=== PATIENT | male | born 1965 | race Caucasian/White ===

== ENCOUNTER 2017-12-27 18:58 | Observation (INO) ==
[2017-12-27] MEDS ORDERED: Naloxone Inj 0.4 MG/ML Vial IV.PUSH ONE (19:22)
--- NOTE | 2017-12-27 19:33 | ED ---
HPI General Chief Complaint: Altered Mental Status Stated Complaint: AMS Time Seen by Provider: 12/27/17 19:10 Source: patient and EMS Mode of arrival: EMS Limitations: altered mental status History of Present Illness HPI narrative: pt is living in a sober house and very altered slurring words and very sleepy , falls asleep mid sentence and severe slur. denies etoh , no opioids no ambien, other. However the patient does have a bottle of Rozerem it is a melatonin receptor agonist apparently was filled 30 days ago with 90 pills it is empty and it was q. at bedtime so he possibly is taking much too much of this melatonin receptor agonist which theoretically could cause severe somnolence. ROS and HPI is limited to the fact that he is very sleepy lethargic falling asleep mid sentence Related Data Home Medications Medication Instructions Recorded Confirmed escitalopram oxalate 20 mg PO DAILY 12/27/17 12/29/17 famotidine 20 mg PO DAILY 12/27/17 12/29/17 finasteride 5 mg PO DAILY 12/27/17 12/29/17 quetiapine 400 mg PO BID 12/27/17 12/29/17 sitagliptin [Januvia] 50 mg PO DAILY 12/27/17 12/29/17 tamsulosin 0.4 mg PO DAILY 12/27/17 12/29/17 lithium carbonate 600 mg PO BID 12/29/17 12/29/17 Previous Rx's Medication Instructions Recorded cephalexin 500 mg PO Q12H #14 cap 12/28/17 Allergies Allergy/AdvReac Type Severity Reaction Status Date / Time No Known Allergies Allergy Verified 12/29/17 18:29 Review of Systems ROS Unobtainable ROS Unobtainable: unobtainable due to mental status (lethergic sleepy slurring appears intoxicated ) [facility] Social History Social History Substance History: No History of Abuse Second Hand Smoke Exposure: No Smoking Status: Never smoker How Often Do You Have a Drink Containing Alcohol: Never Immunization History Tetanus Immunization: Unable to Assess Exam Narrative Exam Narrative: GENERAL: Lethargic sleepy somnolent trials off midsentence slurring his words SKIN: Warm and dry. HEAD: Atraumatic. Normocephalic. EYES: Pupils equal and round. No scleral icterus. No injection or drainage. ENT: No nasal bleeding or discharge. Mucous membranes pink and moist. NECK: Trachea midline. No JVD. CARDIOVASCULAR: Regular rate and rhythm. RESPIRATORY: No accessory muscle use. Clear to auscultation. Breath sounds equal bilaterally. GASTROINTESTINAL: Abdomen soft, non-tender, nondistended. Hepatic and splenic margins not palpable. MUSCULOSKELETAL: Extremities without clubbing, cyanosis, or edema. No obvious deformities. PSYCHIATRIC: No delusional thought processes. No hallucinations. Patient seems to be falling asleep mid sentence very somnolent possible and talks overdose Course Initial Documented Vital Signs Pulse Rate 79 12/27/17 19:12 Respiratory Rate 18 12/27/17 19:12 Blood Pressure 111/68 12/27/17 19:12 Pulse Oximetry 95 12/27/17 19:12 Last Documented Vital Signs Temperature 98.0 F 12/28/17 07:28 Pulse Rate 68 12/28/17 07:28 Respiratory Rate 16 12/28/17 07:28 Blood Pressure 130/80 12/28/17 07:28 Pulse Oximetry 97 12/28/17 07:28 Medical Decision Making [facility] Narrative Medical decision making narrative: Patient has a bottle of roast serum which is a melatonin agonist possibly he is taking much too much of this because the bottle is empty it should have at least 60 pills left 90 pills were filled on November 24 and they are empty bottle CT of head is done bedside glucose is 137 there is no sign of drug screen and Narcan is given, pt has a significant UTI and the combination of meds and urosepsis is possibly the reason for lethargy . admitted for further treatment and IV antibiotics Medical Screen Exam Complete: Yes Emergency Medical Condition: Yes Differential Diagnosis Differential Diagnosis: Differential diagnosis includes alcohol intoxication opioid overdose this Seroquel overdose benzo overdose Benadryl overdose intracranial head bleed hypoglycemia insulin overdose Lab Data Result diagrams: 12/28/17 05:30 12/28/17 05:30 Lab Results 12/27/17 12/27/17 12/27/17 Range/Units 19:17 19:23 19:23 WBC 6.4 (4.0-11.0) th/mm3 RBC 4.53 (4.50-5.90) mil/mm3 Hgb 14.0 (13.0-17.0) gm/dL Hct 39.1 (39.0-51.0) % MCV 86.2 (80.0-100.0) fL MCH 30.8 (27.0-34.0) pg MCHC 35.7 (32.0-36.0) % RDW 13.5 (11.6-17.2) % Plt Count 158 (150-450) th/mm3 MPV 7.1 (7.0-11.0) fL Neut % (Auto) 53.3 (16.0-70.0) % Lymph % (Auto) 31.4 (9.0-44.0) % [place] % (Auto) 11.7 H (0.0-8.0) % Eos % (Auto) 2.5 (0.0-4.0) % Baso % (Auto) 1.1 (0.0-2.0) % Neut # (Auto) 3.4 (1.8-7.7) th/mm3 Lymph # (Auto) 2.0 (1.0-4.8) th/mm3 [place] # (Auto) 0.8 (0.0-0.9) th/mm3 Eos # (Auto) 0.2 (0.0-0.4) th/mm3 Baso # (Auto) 0.1 (0.0-0.2) th/mm3 WBC Differential . Differential Comment Auto diff final Sodium 141 (136-145) meq/L Potassium 3.9 (3.5-5.1) meq/L Chloride 106 (98-107) meq/L Carbon Dioxide 29.9 (21.0-32.0) meq/L Anion Gap 5 (5-15) meq/L BUN 11 (7-18) mg/dL Creatinine 1.07 (0.60-1.30) mg/dL Estimated GFR 73 L (>89) mL/min POC Glucose 136 H (68-110) mg/dl Random Glucose 117 H (74-106) mg/dL Calcium 9.2 (8.5-10.1) mg/dL Total Bilirubin 0.6 (0.2-1.0) mg/dL AST 13 L (15-37) U/L ALT 28 (12-78) U/L Alkaline Phosphatase 88 (45-117) U/L Total Protein 7.6 (6.4-8.2) g/dL Albumin 3.6 (3.4-5.0) g/dL Lipase 18 L (73-393) U/L Urine Color (Yellw/Straw) Urine Clarity (Clear) Urine pH (5.0-8.5) Ur Specific [place] (1.002-1.035) Urine Protein (Neg-Trace) mg/dL Urine Glucose (UA) (Negative) mg/dL Urine Ketones (Negative) mg/dL Urine Occult Blood (Negative) Urine Nitrate (Negative) Urine Bilirubin (Negative) Urine Urobilinogen (Less than 2) mg/dL Ur Leukocyte Esterase (Negative) Urine RBC (0-3) /hpf Urine WBC (0-5) /hpf Urine WBC Clumps (None) Ur Squamous Epith Cells (0-5) /hpf Urine Bacteria (None) /hpf Urine Mucus (Occasional) /lpf Ur Microscopic Review Salicylates (2.8-20.0) mg/dL Urine Opiates Screen (Neg) Acetaminophen Less than 2.0 L (10.0-30.0) mcg/mL Ur Barbiturates Screen (Neg) Ur Amphetamines Screen (Neg) U Benzodiazepines Scrn (Neg) [place] (0.5-1.5) meq/L Urine Cocaine Screen (Neg) U Cannabinoids Screen (Neg) Serum Alcohol Less than 3 (0-5) mg/dL 12/27/17 12/27/17 12/27/17 Range/Units 19:23 19:23 19:23 WBC (4.0-11.0) th/mm3 RBC (4.50-5.90) mil/mm3 Hgb (13.0-17.0) gm/dL Hct (39.0-51.0) % MCV (80.0-100.0) fL MCH (27.0-34.0) pg MCHC (32.0-36.0) % RDW (11.6-17.2) % Plt Count (150-450) th/mm3 MPV (7.0-11.0) fL Neut % (Auto) (16.0-70.0) % Lymph % (Auto) (9.0-44.0) % [place] % (Auto) (0.0-8.0) % Eos % (Auto) (0.0-4.0) % Baso % (Auto) (0.0-2.0) % Neut # (Auto) (1.8-7.7) th/mm3 Lymph # (Auto) (1.0-4.8) th/mm3 [place] # (Auto) (0.0-0.9) th/mm3 Eos # (Auto) (0.0-0.4) th/mm3 Baso # (Auto) (0.0-0.2) th/mm3 WBC Differential Differential Comment Sodium (136-145) meq/L Potassium (3.5-5.1) meq/L Chloride (98-107) meq/L Carbon Dioxide (21.0-32.0) meq/L Anion Gap (5-15) meq/L BUN (7-18) mg/dL Creatinine (0.60-1.30) mg/dL Estimated GFR (>89) mL/min POC Glucose (68-110) mg/dl Random Glucose (74-106) mg/dL Calcium (8.5-10.1) mg/dL Total Bilirubin (0.2-1.0) mg/dL AST (15-37) U/L ALT (12-78) U/L Alkaline Phosphatase (45-117) U/L Total Protein (6.4-8.2) g/dL Albumin (3.4-5.0) g/dL Lipase (73-393) U/L Urine Color (Yellw/Straw) Urine Clarity (Clear) Urine pH (5.0-8.5) Ur Specific [place] (1.002-1.035) Urine Protein (Neg-Trace) mg/dL Urine Glucose (UA) (Negative) mg/dL Urine Ketones (Negative) mg/dL Urine Occult Blood (Negative) Urine Nitrate (Negative) Urine Bilirubin (Negative) Urine Urobilinogen (Less than 2) mg/dL Ur Leukocyte Esterase (Negative) Urine RBC (0-3) /hpf Urine WBC (0-5) /hpf Urine WBC Clumps (None) Ur Squamous Epith Cells (0-5) /hpf Urine Bacteria (None) /hpf Urine Mucus (Occasional) /lpf Ur Microscopic Review Salicylates Less than 1.7 L (2.8-20.0) mg/dL Urine Opiates Screen (Neg) Acetaminophen Cancelled (10.0-30.0) mcg/mL Ur Barbiturates Screen (Neg) Ur Amphetamines Screen (Neg) U Benzodiazepines Scrn (Neg) [place] (0.5-1.5) meq/L Urine Cocaine Screen (Neg) U Cannabinoids Screen (Neg) Serum Alcohol Cancelled (0-5) mg/dL 12/27/17 12/27/17 12/27/17 Range/Units 20:16 20:16 21:02 WBC (4.0-11.0) th/mm3 RBC (4.50-5.90) mil/mm3 Hgb (13.0-17.0) gm/dL Hct (39.0-51.0) % MCV (80.0-100.0) fL MCH (27.0-34.0) pg MCHC (32.0-36.0) % RDW (11.6-17.2) % Plt Count (150-450) th/mm3 MPV (7.0-11.0) fL Neut % (Auto) (16.0-70.0) % Lymph % (Auto) (9.0-44.0) % [place] % (Auto) (0.0-8.0) % Eos % (Auto) (0.0-4.0) % Baso % (Auto) (0.0-2.0) % Neut # (Auto) (1.8-7.7) th/mm3 Lymph # (Auto) (1.0-4.8) th/mm3 [place] # (Auto) (0.0-0.9) th/mm3 Eos # (Auto) (0.0-0.4) th/mm3 Baso # (Auto) (0.0-0.2) th/mm3 WBC Differential Differential Comment Sodium (136-145) meq/L Potassium (3.5-5.1) meq/L Chloride (98-107) meq/L Carbon Dioxide (21.0-32.0) meq/L Anion Gap (5-15) meq/L BUN (7-18) mg/dL Creatinine (0.60-1.30) mg/dL Estimated GFR (>89) mL/min POC Glucose 139 H (68-110) mg/dl Random Glucose (74-106) mg/dL Calcium (8.5-10.1) mg/dL Total Bilirubin (0.2-1.0) mg/dL AST (15-37) U/L ALT (12-78) U/L Alkaline Phosphatase (45-117) U/L Total Protein (6.4-8.2) g/dL Albumin (3.4-5.0) g/dL Lipase (73-393) U/L Urine Color Yellow (Yellw/Straw) Urine Clarity Cloudy H (Clear) Urine pH 7.0 (5.0-8.5) Ur Specific [place] 1.009 (1.002-1.035) Urine Protein Negative (Neg-Trace) mg/dL Urine Glucose (UA) Negative (Negative) mg/dL Urine Ketones Negative (Negative) mg/dL Urine Occult Blood Negative (Negative) Urine Nitrate Negative (Negative) Urine Bilirubin Negative (Negative) Urine Urobilinogen Less than 2 (Less than 2) mg/dL Ur Leukocyte Esterase Large H (Negative) Urine RBC 2 (0-3) /hpf Urine WBC (0-5) /hpf Urine WBC Clumps Many H (None) Ur Squamous Epith Cells <1 (0-5) /hpf Urine Bacteria Moderate H (None) /hpf Urine Mucus Few H (Occasional) /lpf Ur Microscopic Review Not Reportable Salicylates (2.8-20.0) mg/dL Urine Opiates Screen Neg (Neg) Acetaminophen (10.0-30.0) mcg/mL Ur Barbiturates Screen Neg (Neg) Ur Amphetamines Screen Neg (Neg) U Benzodiazepines Scrn Neg (Neg) [place] (0.5-1.5) meq/L Urine Cocaine Screen Neg (Neg) U Cannabinoids Screen Neg (Neg) Serum Alcohol (0-5) mg/dL 12/27/17 12/27/17 12/28/17 Range/Units 23:24 23:58 05:30 WBC 6.7 (4.0-11.0) th/mm3 RBC 4.70 (4.50-5.90) mil/mm3 Hgb 14.3 (13.0-17.0) gm/dL Hct 40.4 (39.0-51.0) % MCV 86.0 (80.0-100.0) fL MCH 30.5 (27.0-34.0) pg MCHC 35.5 (32.0-36.0) % RDW 13.5 (11.6-17.2) % Plt Count 158 (150-450) th/mm3 MPV 7.2 (7.0-11.0) fL Neut % (Auto) 61.1 (16.0-70.0) % Lymph % (Auto) 26.2 (9.0-44.0) % [place] % (Auto) 9.5 H (0.0-8.0) % Eos % (Auto) 2.5 (0.0-4.0) % Baso % (Auto) 0.7 (0.0-2.0) % Neut # (Auto) 4.1 (1.8-7.7) th/mm3 Lymph # (Auto) 1.8 (1.0-4.8) th/mm3 [place] # (Auto) 0.6 (0.0-0.9) th/mm3 Eos # (Auto) 0.2 (0.0-0.4) th/mm3 Baso # (Auto) 0.1 (0.0-0.2) th/mm3 WBC Differential . Differential Comment Auto diff final Sodium (136-145) meq/L Potassium (3.5-5.1) meq/L Chloride (98-107) meq/L Carbon Dioxide (21.0-32.0) meq/L Anion Gap (5-15) meq/L BUN (7-18) mg/dL Creatinine (0.60-1.30) mg/dL Estimated GFR (>89) mL/min POC Glucose 284 H (68-110) mg/dl Random Glucose (74-106) mg/dL Calcium (8.5-10.1) mg/dL Total Bilirubin (0.2-1.0) mg/dL AST (15-37) U/L ALT (12-78) U/L Alkaline Phosphatase (45-117) U/L Total Protein (6.4-8.2) g/dL Albumin (3.4-5.0) g/dL Lipase (73-393) U/L Urine Color (Yellw/Straw) Urine Clarity (Clear) Urine pH (5.0-8.5) Ur Specific [place] (1.002-1.035) Urine Protein (Neg-Trace) mg/dL Urine Glucose (UA) (Negative) mg/dL Urine Ketones (Negative) mg/dL Urine Occult Blood (Negative) Urine Nitrate (Negative) Urine Bilirubin (Negative) Urine Urobilinogen (Less than 2) mg/dL Ur Leukocyte Esterase (Negative) Urine RBC (0-3) /hpf Urine WBC (0-5) /hpf Urine WBC Clumps (None) Ur Squamous Epith Cells (0-5) /hpf Urine Bacteria (None) /hpf Urine Mucus (Occasional) /lpf Ur Microscopic Review Salicylates (2.8-20.0) mg/dL Urine Opiates Screen (Neg) Acetaminophen (10.0-30.0) mcg/mL Ur Barbiturates Screen (Neg) Ur Amphetamines Screen (Neg) U Benzodiazepines Scrn (Neg) [place] 0.5 (0.5-1.5) meq/L Urine Cocaine Screen (Neg) U Cannabinoids Screen (Neg) Serum Alcohol (0-5) mg/dL 12/28/17 12/28/17 Range/Units 05:30 07:40 WBC (4.0-11.0) th/mm3 RBC (4.50-5.90) mil/mm3 Hgb (13.0-17.0) gm/dL Hct (39.0-51.0) % MCV (80.0-100.0) fL MCH (27.0-34.0) pg MCHC (32.0-36.0) % RDW (11.6-17.2) % Plt Count (150-450) th/mm3 MPV (7.0-11.0) fL Neut % (Auto) (16.0-70.0) % Lymph % (Auto) (9.0-44.0) % [place] % (Auto) (0.0-8.0) % Eos % (Auto) (0.0-4.0) % Baso % (Auto) (0.0-2.0) % Neut # (Auto) (1.8-7.7) th/mm3 Lymph # (Auto) (1.0-4.8) th/mm3 [place] # (Auto) (0.0-0.9) th/mm3 Eos # (Auto) (0.0-0.4) th/mm3 Baso # (Auto) (0.0-0.2) th/mm3 WBC Differential Differential Comment Sodium 134 L (136-145) meq/L Potassium 4.1 (3.5-5.1) meq/L Chloride 100 (98-107) meq/L Carbon Dioxide 25.8 (21.0-32.0) meq/L Anion Gap 8 (5-15) meq/L BUN 14 (7-18) mg/dL Creatinine 1.10 (0.60-1.30) mg/dL Estimated GFR 71 L (>89) mL/min POC Glucose 284 H (68-110) mg/dl Random Glucose 345 H D (74-106) mg/dL Calcium 9.3 (8.5-10.1) mg/dL Total Bilirubin 0.6 (0.2-1.0) mg/dL AST 10 L (15-37) U/L ALT 24 (12-78) U/L Alkaline Phosphatase 93 (45-117) U/L Total Protein 7.8 (6.4-8.2) g/dL Albumin 3.8 (3.4-5.0) g/dL Lipase (73-393) U/L Urine Color (Yellw/Straw) Urine Clarity (Clear) Urine pH (5.0-8.5) Ur Specific [place] (1.002-1.035) Urine Protein (Neg-Trace) mg/dL Urine Glucose (UA) (Negative) mg/dL Urine Ketones (Negative) mg/dL Urine Occult Blood (Negative) Urine Nitrate (Negative) Urine Bilirubin (Negative) Urine Urobilinogen (Less than 2) mg/dL Ur Leukocyte Esterase (Negative) Urine RBC (0-3) /hpf Urine WBC (0-5) /hpf Urine WBC Clumps (None) Ur Squamous Epith Cells (0-5) /hpf Urine Bacteria (None) /hpf Urine Mucus (Occasional) /lpf Ur Microscopic Review Salicylates (2.8-20.0) mg/dL Urine Opiates Screen (Neg) Acetaminophen (10.0-30.0) mcg/mL Ur Barbiturates Screen (Neg) Ur Amphetamines Screen (Neg) U Benzodiazepines Scrn (Neg) [place] (0.5-1.5) meq/L Urine Cocaine Screen (Neg) U Cannabinoids Screen (Neg) Serum Alcohol (0-5) mg/dL Imaging Data Radiologist's impression: Chest X-Ray 12/27/17 19:21 CONCLUSION: Under aerated otherwise negative Head CT 12/27/17 20:06 CONCLUSION: 1. Negative for acute process . Discharge Plan Discharge Disposition Patient Disposition: 01 Discharge Home Discharge Order Discharge Orders: Discharge Order (Routine); Ordered 12/28/17 Ordered By: Cecelia Nugent Physicians Team ED Provider: Denny Rodriguez Primary Care Provider: Primary Care Viktoriya Damian Attending Provider: Mary Mendez Status ED Status: Left Department Discharge Information Discharge Date/Time: 12/28/17 00:30
[2017-12-27 19:37] LABS: Baso # (Auto) 0.1 th/mm3 (0.0-0.2); Baso % (Auto) 1.1 % (0.0-2.0); Eos # (Auto) 0.2 th/mm3 (0.0-0.4); Eos % (Auto) 2.5 % (0.0-4.0); Hematocrit 39.1 % (39.0-51.0); Lymph % (Auto) 31.4 % (9.0-44.0); Mean Corpuscular HGB Conc 35.7 % (32.0-36.0); Mean Corpuscular Hemoglobin 30.8 pg (27.0-34.0); Mean Corpuscular Volume 86.2 fL (80.0-100.0); Mean Platelet Volume 7.1 fL (7.0-11.0); Mono # (Auto) 0.8 th/mm3 (0.0-0.9); Mono % (Auto) 11.7 % (0.0-8.0); Neut # (Auto) 3.4 th/mm3 (1.8-7.7); Neut % (Auto) 53.3 % (16.0-70.0); Platelet Count 158 th/mm3 (150-450); Red Blood Count 4.53 mil/mm3 (4.50-5.90); Red Cell Distribution Width 13.5 % (11.6-17.2); White Blood Count 6.4 th/mm3 (4.0-11.0)
--- NOTE | 2017-12-27 19:41 | XR ---
EXAM DATE: 12/27/2017 7:21 PM EDT AGE/SEX: 52 years / Male INDICATIONS: Altered mental status. CLINICAL DATA: This is the patient's initial encounter. Patient reports that signs and symptoms have been present for 1 day and indicates a pain score of 0/10. MEDICAL/SURGICAL HISTORY: None. None. COMPARISON: No prior exams available for comparison. FINDINGS: The lungs are under aerated but clear. The cardiomediastinal contours are unremarkable. Osseous str uctures are intact. CONCLUSION: Under aerated otherwise negative Electronically signed by: Xavier Barnett MD 12/27/2017 7:40 PM EDT
[2017-12-27 19:56] LABS: Anion Gap 5 meq/L (5-15)
[2017-12-27 20:00] LABS: Alanine Aminotransferase 28 U/L (12-78); Albumin 3.6 g/dL (3.4-5.0); Alkaline Phosphatase 88 U/L (45-117); Aspartate Aminotransferase 13 U/L (15-37); Blood Urea Nitrogen 11 mg/dL (7-18); Calcium 9.2 mg/dL (8.5-10.1); Carbon Dioxide 29.9 meq/L (21.0-32.0); Chloride 106 meq/L (98-107); Glomerular Filtration Rate 73 mL/min (>89); Glucose,Random 117 mg/dL (74-106); Lipase 18 U/L (73-393); Potassium 3.9 meq/L (3.5-5.1); Sodium 141 meq/L (136-145); Total Protein 7.6 g/dL (6.4-8.2)
--- NOTE | 2017-12-27 20:56 | CT ---
EXAM DATE: 12/27/2017 8:10 PM EDT AGE/SEX: 52 years / Male INDICATIONS: Altered mental status. CLINICAL DATA: This is the patient's initial encounter. Patient reports that signs and symptoms have been present for 1 day and indicates a pain score of 0/10. MEDICAL/SURGICAL HISTORY: Diabetes. Renal calculi. ETOH abuse. None. RADIATION DOSE: 43.12 CTDI (mGy) COMPARISON: . TECHNIQUE: CT of the head without contrast. Using automated exposure control and adjustment of the mA and/or kV according to patient size, radiation dose was kept as low as reasonably achievable to ob tain optimal diagnostic quality images. DICOM format image data is available electronically for revi ew and comparison. FINDINGS: Cerebrum: The ventricles are normal for age. No evidence of midline shift, mass lesion, hemorrhage or acute infarction. No extraaxial fluid collections are seen. Posterior Fossa: The cerebellum and brainstem are intact. The 4th ventricle is midline. The cerebe llopontine angle is unremarkable. Extracranial: The visualized portion of the orbits is intact. Skull: The calvaria is intact. No evidence of skull fracture. CONCLUSION: 1. Negative for acute process . Electronically signed by: Xavier Barnett MD 12/27/2017 8:54 PM EDT
[2017-12-27 21:06] LABS: Bacteria,Urine Moderate /hpf; Bilirubin,Urine Negative (Negative); Clarity,Urine Cloudy (Clear); Color,Urine Yellow (Yellw/Straw); Glucose,Urine (UA) Negative (Negative); Leukocyte Esterase,Urine Large (Negative); Mucus,Urine Few /lpf (Occasional); Nitrite,Urine Negative (Negative); Specific Gravity,Urine 1.009 (1.002-1.035); Squamous Epithelial Cell,Urine <1 /hpf (0-5)
[2017-12-27 21:07] LABS: Amphetamine Screen,Urine Neg (Neg); Barbiturate Screen,Urine Neg (Neg); Cannabinoid Screen,Urine Neg (Neg); Cocaine Screen,Urine Neg (Neg)
[2017-12-27 21:10] LABS: Opiate Screen,Urine Neg (Neg)
[2017-12-27] MEDS ORDERED: Bisacodyl 10 MG Supp RECTAL PRN (23:01)
[2017-12-27] MEDS ORDERED: Dextrose 50% in Water 50 ML Vial IV.PUSH PRN (23:04)
--- NOTE | 2017-12-27 23:19 | P.HPIM ---
History of Present Illness Primary Care Physician: No Primary Care Physician History of Present Illness: This is a 60-year-old male with a PMH of Depression, DM and h/o Alcohol Abuse who was sent to the ER from [facility] for lethargy and AMS. Upon arrival, pt unable to provide any history due to somnolence. Eval of belonging revealed pt w/ bottle of Rozerem sleeping medication filled 1mo ago for 90 tablets with no pills remaining. BP 111/68, HR 79, O2 sat 95% on RA. CBC unremarkable. Chemistry essentially unremarkable. UA positive for UTI. Alcohol negative. Urine Drug Screen negative. Tylenol and salicylate negative. CT Head with no acute findings. CXR negative. Mental status currently improved and pt more arouseable, however noted to be confused. S/p Rocephin in ER - Diagnosis (1) Encephalopathy (2) UTI (urinary tract infection) (3) DM (diabetes mellitus) Review of Systems PAST FAMILY HISTORY: Unknown All other systems reviewed negative except as stated in HPI [facility] - History History Provided By: Rad Technologist / EMT - Medical History Medical History: Medical History (Last Updated 12/27/17 @ 19:15 by Jen Cuello RN) Depression Diabetes ETOH abuse Kidney stones - Tobacco History Smoking Status: Unknown if ever smoked - Alcohol History How Often Do You Have a Drink Containing Alcohol: Unable to Obtain - Substance Use History Substance History: Unable to Obtain - Travel History Recent Travel in the [facility] Within the Last 8 Weeks: No Recent Travel Out of the Country Within the Last 8 Weeks: No - Immunization History Tetanus Immunization: Unable to Assess Medications and Allergies Active Medications: Active Medications Al Hydroxide/Mg Hydroxide (Milk Of Mallory Vu) 30 ml PO Q12H PRN PRN Reason: Mild Constipation Bisacodyl (Dulcolax Supp) 10 mg RECTAL DAILY PRN PRN Reason: SEVERE CONSITIPATION Dextrose (D50w Vial) 50 ml IV.PUSH UNSCH PRN PRN Reason: PER HYPOGLYCEMIA PROTOCOL Glucagon (Glucagon Inj) 1 mg OTHER PRN PRN PRN Reason: for Hypoglycemia Protocol Ceftriaxone Sodium 1,000 mg/ (Sodium Chloride) 100 mls @ 200 mls/hr IV.SIG Q24H JEB Sodium Chloride (Ns Inj) 1,000 mls @ 100 mls/hr IV.CONT .Q10H JEB Insulin Aspart (Novolog Insulin Correctional Sugar Inj) 0 unit SQ ACHS JEB; Protocol Lactulose (Lactulose Liq) 30 ml PO DAILY PRN PRN Reason: SEVERE CONSITIPATION Ondansetron HCl (Zofran Inj) 4 mg IV.PUSH Q6H PRN PRN Reason: NAUSEA OR VOMITING Senna/Docusate Sodium (Gladys-Colace) 1 tab PO BID JEB Sennosides (Senokot) 17.2 mg PO Q12H PRN PRN Reason: Moderate Constipation Allergies Allergy/AdvReac Type Severity Reaction Status Date / Time No Allergy Information Allergy Unverified 12/27/17 19:12 Available Home Medications Medication Instructions Recorded Confirmed Type escitalopram oxalate 20 mg PO DAILY 12/27/17 12/27/17 History famotidine 20 mg PO DAILY 12/27/17 12/27/17 History finasteride 5 mg PO DAILY 12/27/17 12/27/17 History lithium carbonate 300 mg PO TID 12/27/17 12/27/17 History naltrexone 50 mg PO DAILY 12/27/17 12/27/17 History propranolol 10 mg PO BID 12/27/17 12/27/17 History quetiapine 400 mg PO BID 12/27/17 12/27/17 History ramelteon [Rozerem] 8 mg PO HS 12/27/17 12/27/17 History sitagliptin [Januvia] 50 mg PO DAILY 12/27/17 12/27/17 History tamsulosin 0.4 mg PO DAILY 12/27/17 12/27/17 History Exam Vital signs: Vital Signs 12/27/17 19:12 12/27/17 19:16 12/27/17 22:47 Pulse Rate 79 79 74 Respiratory Rate 18 16 Blood Pressure 111/68 111/68 131/81 Pulse Oximetry 95 96 100 Intake & Output 12/27/17 12/27/17 12/28/17 06:59 18:59 06:59 Weight 94.801 kg Other: # Voids 1 Narrative: PE: GENERAL: Middle-aged white male in no acute distress, sitting up in stretcher w / eyes closed, but arouseable, answers questions. SKIN: Focused skin assessment warm and dry. HEENT: PERRLA, EOMI. No scleral icterus or conjunctival pallor. No lid lag or facial droop. CARDIOVASCULAR: Regular rate and rhythm. No obvious murmurs to auscultation. No chest tenderness to palpation. RESPIRATORY: No obvious rhonchi or wheezing. Clear to auscultation. Breath sounds equal bilaterally. GASTROINTESTINAL: Abdomen soft, non-tender, nondistended. BS normal. MUSCULOSKELETAL: Extremities without clubbing, cyanosis, or edema. No obvious deformities. NEUROLOGICAL: Awake, alert, answering questions but appears confused. No focal neurologic deficits. Moving both upper and lower extremities spontaneously. PSYCHIATRIC: Appropriate mood and affect. Insight and judgment normal. Results - Labs CBC & Chem 7: 12/27/17 19:23 12/27/17 19:23 Labs: Short CBC 12/27/17 Range/Units 19:23 WBC 6.4 (4.0-11.0) th/mm3 Hgb 14.0 (13.0-17.0) gm/dL Hct 39.1 (39.0-51.0) % Plt Count 158 (150-450) th/mm3 BMP 12/27/17 19:23 Sodium 141 Potassium 3.9 Chloride 106 Carbon Dioxide 29.9 BUN 11 Creatinine 1.07 Calcium 9.2 Liver Function 12/27/17 Range/Units 19:23 Total Bilirubin 0.6 (0.2-1.0) mg/dL AST 13 L (15-37) U/L ALT 28 (12-78) U/L Alkaline Phosphatase 88 (45-117) U/L Albumin 3.6 (3.4-5.0) g/dL Urine 12/27/17 Range/Units 20:16 Urine Color Yellow (Yellw/Straw) Urine Clarity Cloudy H (Clear) Urine pH 7.0 (5.0-8.5) Ur Specific [place] 1.009 (1.002-1.035) Urine Protein Negative (Neg-Trace) mg/dL Urine Glucose (UA) Negative (Negative) mg/dL - Imaging Impressions Chest X-Ray 12/27/17 19:21 CONCLUSION: Under aerated otherwise negative Head CT 12/27/17 20:06 CONCLUSION: 1. Negative for acute process . Caprini VTE Risk Assessment Caprini VTE Risk Assessment: No/Low Risk (score <= 1) Caprini Risk Assessment Model: Point Value = 1 Point Value = 2 Point Value = 3 Point Value = 5 Age 41-60 Minor surgery BMI > 25 kg/m2 Swollen legs Varicose veins or History of unexplained or recurrent spontaneous Oral contraceptives or hormone replacement Sepsis (< 1 month) Serious lung disease, including pneumonia (< 1 month) Abnormal pulmonary function Acute myocardial infarction Congestive heart failure (< 1 month) History of inflammatory bowel disease Medical patient at bed rest Age 61-74 Arthroscopic surgery Major open surgery (> 45 min) Laparoscopic surgery (> 45 min) Malignancy Confined to bed (> 72 hours) Immobilizing plaster cast Central venous access Age >= 75 History of VTE Family history of VTE Factor V Leiden Prothrombin [id number] Lupus anticoagulant Anticardiolipin antibodies Elevated serum homocysteine Heparin-induced thrombocytopenia Other congenital or acquired thrombophilia Stroke (< 1 month) Elective arthroplasty Hip, pelvis, or leg fracture Acute spinal cord injury (< 1 month) Prophylaxis Regimen: Total Risk Factor Score Risk Level Prophylaxis Regimen 0-1 Low Early ambulation 2 Moderate Order ONE of the following: *Sequential Compression Device (SCD) *Heparin 5000 units SQ BID 3-4 Higher Order ONE of the following medications: *Heparin 5000 units SQ TID *Enoxaparin/Lovenox 40 mg SQ daily (WT < 150 kg, CrCl > 30 mL/min) *Enoxaparin/Lovenox 30 mg SQ daily (WT < 150 kg, CrCl > 10-29 mL/min) *Enoxaparin/Lovenox 30 mg SQ BID (WT < 150 kg, CrCl > 30 mL/min) AND/OR *Sequential Compression Device (SCD) 5 or more Highest Order ONE of the following medications: *Heparin 5000 units SQ TID (Preferred with Epidurals) *Enoxaparin/Lovenox 40 mg SQ daily (WT < 150 kg, CrCl > 30 mL/min) *Enoxaparin/Lovenox 30 mg SQ daily (WT < 150 kg, CrCl > 10-29 mL/min) *Enoxaparin/Lovenox 30 mg SQ BID (WT < 150 kg, CrCl > 30 mL/min) AND *Sequential Compression Device (SCD) Assessment and Plan - Assessment (1) Encephalopathy Code(s): G93.40 - Encephalopathy, unspecified Status: Acute (2) UTI (urinary tract infection) Code(s): N39.0 - Urinary tract infection, site not specified Status: Acute (3) DM (diabetes mellitus) Code(s): E11.9 - Type 2 diabetes mellitus without complications Status: Acute - Plan A/P: 1. Encephalopathy: acute onset AMS/lethargy, likely combination of UTI and overmedication w/ sleep meds. CT Head w/ no acute findings, images reviewed. While in ER mental status improved, however appears confused, talking about his little brother coming into his room. Medications reviewed, on [place] at home, will check [place] level. 2. UTI: U/a w/ significant UTI, s/p Rocephin IV in ER, continue w/ IV Abx, follow up cultures, IVF for hydration, monitor I/O. 3. DM: Sliding scale w/ Accu-Cheks, hold home Januvia for now. 4. DVT Prophylaxis: SCD/Teds 5. Social work for d/c planning as needed. 6. Case discussed w/ ER physician at length, labs/records/imaging reviewed by me.
[2017-12-27] MEDS: Sod Chloride 0.9% Inj 1,000 ML IV.CONT SCH (23:29)
[2017-12-28 06:07] LABS: Baso # (Auto) 0.1 th/mm3 (0.0-0.2); Baso % (Auto) 0.7 % (0.0-2.0); Eos # (Auto) 0.2 th/mm3 (0.0-0.4); Eos % (Auto) 2.5 % (0.0-4.0); Hematocrit 40.4 % (39.0-51.0); Hemoglobin 14.3 gm/dL (13.0-17.0); Lymph # (Auto) 1.8 th/mm3 (1.0-4.8); Lymph % (Auto) 26.2 % (9.0-44.0); Mean Corpuscular HGB Conc 35.5 % (32.0-36.0); Mean Corpuscular Hemoglobin 30.5 pg (27.0-34.0); Mean Platelet Volume 7.2 fL (7.0-11.0); Mono # (Auto) 0.6 th/mm3 (0.0-0.9); Mono % (Auto) 9.5 % (0.0-8.0); Neut # (Auto) 4.1 th/mm3 (1.8-7.7); Neut % (Auto) 61.1 % (16.0-70.0); Platelet Count 158 th/mm3 (150-450); Red Cell Distribution Width 13.5 % (11.6-17.2); White Blood Count 6.7 th/mm3 (4.0-11.0)
[2017-12-28 06:30] LABS: Alanine Aminotransferase 24 U/L (12-78); Albumin 3.8 g/dL (3.4-5.0); Alkaline Phosphatase 93 U/L (45-117); Anion Gap 8 meq/L (5-15); Aspartate Aminotransferase 10 U/L (15-37); Blood Urea Nitrogen 14 mg/dL (7-18); Calcium 9.3 mg/dL (8.5-10.1); Carbon Dioxide 25.8 meq/L (21.0-32.0); Chloride 100 meq/L (98-107); Glomerular Filtration Rate 71 mL/min (>89); Glucose,Random 345 mg/dL (74-106); Potassium 4.1 meq/L (3.5-5.1); Sodium 134 meq/L (136-145); Total Protein 7.8 g/dL (6.4-8.2)
[2017-12-28 07:30] VITALS: BP 130/80; PULSE 68; RESP 16; TEMP 98; O2SAT 97
--- NOTE | 2017-12-28 08:30 | P.PN ---
Subjective Interval history: Patient is seen sitting up on side of bed. He is awake and alert tells me he feels much better. No chest pain or shortness of breath. No nausea vomiting or diarrhea. No dysuria but he does report hesitancy and incomplete emptying due to prostate enlargement. Physical Exam Vital signs: Vital Signs 12/27/17 19:12 12/27/17 19:16 12/27/17 22:47 Temperature Pulse Rate 79 79 74 Respiratory Rate 18 18 16 Blood Pressure 111/68 111/68 131/81 Pulse Oximetry 95 96 100 12/27/17 23:52 12/28/17 00:00 12/28/17 04:00 Temperature 98.2 F Pulse Rate 70 88 Respiratory Rate 19 Blood Pressure 108/73 109/75 Pulse Oximetry 98 97 95 12/28/17 05:57 12/28/17 07:28 Temperature 98.0 F Pulse Rate 70 68 Respiratory Rate 16 Blood Pressure 130/80 Pulse Oximetry 97 Intake & Output 12/27/17 12/28/17 12/28/17 18:59 06:59 18:59 Intake Total 1060 / 1060 Balance 1060 / 1060 Weight 94.089 kg Intake: IV 100 / 100 Rocephin Inj 1,000 MG In NS Inj 100 / 100 100 ML @ 200 mls/hr IV.SIG ONCE ONE Rx#:[id number] Oral 960 / 960 Other: # Voids 3 Date of Last Bowel Movement 12/28/17 Weight On Admission 94.801 kg Narrative: GENERAL: Well-nourished, well-developed adult male in no obvious distress. SKIN: Warm and dry. HEAD: Atraumatic. Normocephalic. CARDIOVASCULAR: Regular rate and rhythm. RESPIRATORY: No accessory muscle use. Clear to auscultation. Breath sounds equal bilaterally. GASTROINTESTINAL: Abdomen soft, non-tender, non-distended. Positive bowel sounds. MUSCULOSKELETAL: Extremities without clubbing, cyanosis, or edema. No obvious deformities. NEUROLOGICAL: Awake and alert. No obvious cranial nerve deficits. Motor grossly within normal limits. Normal speech. PSYCHIATRIC: Appropriate mood and affect; insight and judgment good. Manipulative. Results - Labs CBC & Chem 7: 12/28/17 05:30 12/28/17 05:30 Laboratory Results - last 24 hr 12/27/17 12/27/17 12/27/17 19:17 19:23 19:23 WBC 6.4 RBC 4.53 Hgb 14.0 Hct 39.1 MCV 86.2 MCH 30.8 MCHC 35.7 RDW 13.5 Plt Count 158 MPV 7.1 Neut % (Auto) 53.3 Lymph % (Auto) 31.4 Divide % (Auto) 11.7 H Eos % (Auto) 2.5 Baso % (Auto) 1.1 Neut # (Auto) 3.4 Lymph # (Auto) 2.0 Divide # (Auto) 0.8 Eos # (Auto) 0.2 Baso # (Auto) 0.1 WBC Differential . Differential Comment Auto diff final Sodium 141 Potassium 3.9 Chloride 106 Carbon Dioxide 29.9 Anion Gap 5 BUN 11 Creatinine 1.07 Estimated GFR 73 L POC Glucose 136 H Random Glucose 117 H Calcium 9.2 Total Bilirubin 0.6 AST 13 L ALT 28 Alkaline Phosphatase 88 Total Protein 7.6 Albumin 3.6 Lipase 18 L Urine Color Urine Clarity Urine pH Ur Specific [place] Urine Protein Urine Glucose (UA) Urine Ketones Urine Occult Blood Urine Nitrate Urine Bilirubin Urine Urobilinogen Ur Leukocyte Esterase Urine RBC Urine WBC Urine WBC Clumps Ur Squamous Epith Cells Urine Bacteria Urine Mucus Ur Microscopic Review Salicylates Urine Opiates Screen Acetaminophen Less than 2.0 L Ur Barbiturates Screen Ur Amphetamines Screen U Benzodiazepines Scrn [place] Urine Cocaine Screen U Cannabinoids Screen Serum Alcohol Less than 3 12/27/17 12/27/17 12/27/17 19:23 19:23 19:23 WBC RBC Hgb Hct MCV MCH MCHC RDW Plt Count MPV Neut % (Auto) Lymph % (Auto) Divide % (Auto) Eos % (Auto) Baso % (Auto) Neut # (Auto) Lymph # (Auto) Divide # (Auto) Eos # (Auto) Baso # (Auto) WBC Differential Differential Comment Sodium Potassium Chloride Carbon Dioxide Anion Gap BUN Creatinine Estimated GFR POC Glucose Random Glucose Calcium Total Bilirubin AST ALT Alkaline Phosphatase Total Protein Albumin Lipase Urine Color Urine Clarity Urine pH Ur Specific [place] Urine Protein Urine Glucose (UA) Urine Ketones Urine Occult Blood Urine Nitrate Urine Bilirubin Urine Urobilinogen Ur Leukocyte Esterase Urine RBC Urine WBC Urine WBC Clumps Ur Squamous Epith Cells Urine Bacteria Urine Mucus Ur Microscopic Review Salicylates Less than 1.7 L Urine Opiates Screen Acetaminophen Cancelled Ur Barbiturates Screen Ur Amphetamines Screen U Benzodiazepines Scrn [place] Urine Cocaine Screen U Cannabinoids Screen Serum Alcohol Cancelled 12/27/17 12/27/17 12/27/17 20:16 20:16 21:02 WBC RBC Hgb Hct MCV MCH MCHC RDW Plt Count MPV Neut % (Auto) Lymph % (Auto) Divide % (Auto) Eos % (Auto) Baso % (Auto) Neut # (Auto) Lymph # (Auto) Divide # (Auto) Eos # (Auto) Baso # (Auto) WBC Differential Differential Comment Sodium Potassium Chloride Carbon Dioxide Anion Gap BUN Creatinine Estimated GFR POC Glucose 139 H Random Glucose Calcium Total Bilirubin AST ALT Alkaline Phosphatase Total Protein Albumin Lipase Urine Color Yellow Urine Clarity Cloudy H Urine pH 7.0 Ur Specific [place] 1.009 Urine Protein Negative Urine Glucose (UA) Negative Urine Ketones Negative Urine Occult Blood Negative Urine Nitrate Negative Urine Bilirubin Negative Urine Urobilinogen Less than 2 Ur Leukocyte Esterase Large H Urine RBC 2 Urine WBC Urine WBC Clumps Many H Ur Squamous Epith Cells <1 Urine Bacteria Moderate H Urine Mucus Few H Ur Microscopic Review Not Reportable Salicylates Urine Opiates Screen Neg Acetaminophen Ur Barbiturates Screen Neg Ur Amphetamines Screen Neg U Benzodiazepines Scrn Neg [place] Urine Cocaine Screen Neg U Cannabinoids Screen Neg Serum Alcohol 12/27/17 12/27/17 12/28/17 23:24 23:58 05:30 WBC 6.7 RBC 4.70 Hgb 14.3 Hct 40.4 MCV 86.0 MCH 30.5 MCHC 35.5 RDW 13.5 Plt Count 158 MPV 7.2 Neut % (Auto) 61.1 Lymph % (Auto) 26.2 Divide % (Auto) 9.5 H Eos % (Auto) 2.5 Baso % (Auto) 0.7 Neut # (Auto) 4.1 Lymph # (Auto) 1.8 Divide # (Auto) 0.6 Eos # (Auto) 0.2 Baso # (Auto) 0.1 WBC Differential . Differential Comment Auto diff final Sodium Potassium Chloride Carbon Dioxide Anion Gap BUN Creatinine Estimated GFR POC Glucose 284 H Random Glucose Calcium Total Bilirubin AST ALT Alkaline Phosphatase Total Protein Albumin Lipase Urine Color Urine Clarity Urine pH Ur Specific [place] Urine Protein Urine Glucose (UA) Urine Ketones Urine Occult Blood Urine Nitrate Urine Bilirubin Urine Urobilinogen Ur Leukocyte Esterase Urine RBC Urine WBC Urine WBC Clumps Ur Squamous Epith Cells Urine Bacteria Urine Mucus Ur Microscopic Review Salicylates Urine Opiates Screen Acetaminophen Ur Barbiturates Screen Ur Amphetamines Screen U Benzodiazepines Scrn [place] 0.5 Urine Cocaine Screen U Cannabinoids Screen Serum Alcohol 12/28/17 12/28/17 05:30 07:40 WBC RBC Hgb Hct MCV MCH MCHC RDW Plt Count MPV Neut % (Auto) Lymph % (Auto) Divide % (Auto) Eos % (Auto) Baso % (Auto) Neut # (Auto) Lymph # (Auto) Divide # (Auto) Eos # (Auto) Baso # (Auto) WBC Differential Differential Comment Sodium 134 L Potassium 4.1 Chloride 100 Carbon Dioxide 25.8 Anion Gap 8 BUN 14 Creatinine 1.10 Estimated GFR 71 L POC Glucose 284 H Random Glucose 345 H D Calcium 9.3 Total Bilirubin 0.6 AST 10 L ALT 24 Alkaline Phosphatase 93 Total Protein 7.8 Albumin 3.8 Lipase Urine Color Urine Clarity Urine pH Ur Specific [place] Urine Protein Urine Glucose (UA) Urine Ketones Urine Occult Blood Urine Nitrate Urine Bilirubin Urine Urobilinogen Ur Leukocyte Esterase Urine RBC Urine WBC Urine WBC Clumps Ur Squamous Epith Cells Urine Bacteria Urine Mucus Ur Microscopic Review Salicylates Urine Opiates Screen Acetaminophen Ur Barbiturates Screen Ur Amphetamines Screen U Benzodiazepines Scrn [place] Urine Cocaine Screen U Cannabinoids Screen Serum Alcohol - Imaging Impressions Chest X-Ray 12/27/17 19:21 CONCLUSION: Under aerated otherwise negative Head CT 12/27/17 20:06 CONCLUSION: 1. Negative for acute process . Assessment and Plan - Assessment (1) Encephalopathy Code(s): G93.40 - Encephalopathy, unspecified Status: Acute (2) UTI (urinary tract infection) Code(s): N39.0 - Urinary tract infection, site not specified Status: Acute (3) DM (diabetes mellitus) Code(s): E11.9 - Type 2 diabetes mellitus without complications Status: Acute - Plan A/P: 1. Encephalopathy: acute onset AMS/lethargy, likely combination of UTI and overmedication w/ sleep meds. CT Head w/ no acute findings, images reviewed. While in ER mental status improved, however appears confused, talking about his little brother coming into his room. Medications reviewed, on [place] at home, will check [place] level. Confusion completely resolved in a.m. 2. UTI: U/a w/ significant UTI, s/p Rocephin IV in ER, continue w/ IV Abx, follow up cultures, IVF for hydration, monitor I/O. Likely related to prostate enlargement and diabetes. Will discharge with Keflex. 3. DM: Sliding scale w/ Accu-Cheks, hold home Januvia for now. 4. DVT Prophylaxis: SCD/Teds Discharge planning: We will discharge home today.
--- NOTE | 2017-12-28 08:36 | P.DS ---
Date of admission: 12/27/17 23:16 Primary care physician: No Primary Care Physician Attending physician on discharge: Mary Mendez Anticipated date of discharge: 12/28/17 Brief History from admission: This is a 60-year-old male with a PMH of Depression, DM and h/o Alcohol Abuse who was sent to the ER from [facility] for lethargy and AMS. Upon arrival, pt unable to provide any history due to somnolence. Eval of belonging revealed pt w/ bottle of Rozerem sleeping medication filled 1mo ago for 90 tablets with no pills remaining. BP 111/68, HR 79, O2 sat 95% on RA. CBC unremarkable. Chemistry essentially unremarkable. UA positive for UTI. Alcohol negative. Urine Drug Screen negative. Tylenol and salicylate negative. CT Head with no acute findings. CXR negative. Mental status currently improved and pt more arouseable, however noted to be confused. S/p Rocephin in ER DS: Diagnosis - Discharge Diagnosis (1) Encephalopathy Status: Resolved (2) UTI (urinary tract infection) Status: Acute (3) DM (diabetes mellitus) Status: Chronic DS: Medications - Discharge Medications Prescriptions: cephalexin 500 mg PO Q12H #14 cap DS: Summary Hospital Course: Patient is a 53-year-old male with a past history of depression and diabetes as well as alcohol abuse. He was living in a Et[facility] rehab facility when he was sent to the ER for lethargy and AMS. At admission patient was found to have a UTI. EtOH and drug screen were negative. Possibly overdosed on Rozerem. AMS and lethargy resolved completely. Labs and imaging not concerning. Will discharge on p.o. antibiotics. - Time Spent with Patient Total time spent providing and/or coordinating discharge services: Less than 30 minutes - Quality: VTE Deep Vein Thrombosis/Pulmonary Embolism Present on Admission: No Exam Vital signs: Vital Signs 12/27/17 19:12 12/27/17 19:16 12/27/17 22:47 Temperature Pulse Rate 79 79 74 Respiratory Rate 18 16 Blood Pressure 111/68 111/68 131/81 Pulse Oximetry 95 96 100 12/27/17 23:52 12/28/17 00:00 12/28/17 04:00 Temperature 98.2 F Pulse Rate 70 88 Respiratory Rate 16 19 Blood Pressure 108/73 109/75 Pulse Oximetry 98 97 95 12/28/17 05:57 12/28/17 07:28 Temperature 98.0 F Pulse Rate 70 68 Respiratory Rate 16 Blood Pressure 130/80 Pulse Oximetry 97 Intake & Output 12/27/17 12/28/17 12/28/17 18:59 06:59 18:59 Intake Total 1060 / 1060 Balance 1060 / 1060 Weight 94.089 kg Intake: IV 100 / 100 Rocephin Inj 1,000 MG In NS Inj 100 / 100 100 ML @ 200 mls/hr IV.SIG ONCE ONE Rx#:[id number] Oral 960 / 960 Other: # Voids 3 Date of Last Bowel Movement 12/28/17 Weight On Admission 94.801 kg Narrative: GENERAL: Well-nourished, well-developed adult male in no obvious distress. SKIN: Warm and dry. HEAD: Atraumatic. Normocephalic. CARDIOVASCULAR: Regular rate and rhythm. RESPIRATORY: No accessory muscle use. Clear to auscultation. Breath sounds equal bilaterally. GASTROINTESTINAL: Abdomen soft, non-tender, non-distended. Positive bowel sounds. MUSCULOSKELETAL: Extremities without clubbing, cyanosis, or edema. No obvious deformities. NEUROLOGICAL: Awake and alert. No obvious cranial nerve deficits. Motor grossly within normal limits. Normal speech. PSYCHIATRIC: Appropriate mood and affect; insight and judgment good. Manipulative. Results Procedures completed during hospitalization: none Labs on day of discharge: Labs from last 24 hours 12/28/17 12/28/17 12/28/17 07:40 05:30 05:30 WBC 6.7 RBC 4.70 Hgb 14.3 Hct 40.4 MCV 86.0 MCH 30.5 MCHC 35.5 RDW 13.5 Plt Count 158 MPV 7.2 Neut % (Auto) 61.1 Lymph % (Auto) 26.2 [place] % (Auto) 9.5 H Eos % (Auto) 2.5 Baso % (Auto) 0.7 Neut # (Auto) 4.1 Lymph # (Auto) 1.8 [place] # (Auto) 0.6 Eos # (Auto) 0.2 Baso # (Auto) 0.1 WBC Differential . Differential Comment Auto diff final Sodium 134 L Potassium 4.1 Chloride 100 Carbon Dioxide 25.8 Anion Gap 8 BUN 14 Creatinine 1.10 Estimated GFR 71 L POC Glucose 284 H Random Glucose 345 H D Calcium 9.3 Total Bilirubin 0.6 AST 10 L ALT 24 Alkaline Phosphatase 93 Total Protein 7.8 Albumin 3.8 Lipase Urine Color Urine Clarity Urine pH Ur Specific [place] Urine Protein Urine Glucose (UA) Urine Ketones Urine Occult Blood Urine Nitrate Urine Bilirubin Urine Urobilinogen Ur Leukocyte Esterase Urine RBC Urine WBC Urine WBC Clumps Ur Squamous Epith Cells Urine Bacteria Urine Mucus Ur Microscopic Review Salicylates Urine Opiates Screen Acetaminophen Ur Barbiturates Screen Ur Amphetamines Screen U Benzodiazepines Scrn [place] Urine Cocaine Screen U Cannabinoids Screen Serum Alcohol 12/27/17 12/27/17 12/27/17 23:58 23:24 21:02 WBC RBC Hgb Hct MCV MCH MCHC RDW Plt Count MPV Neut % (Auto) Lymph % (Auto) [place] % (Auto) Eos % (Auto) Baso % (Auto) Neut # (Auto) Lymph # (Auto) [place] # (Auto) Eos # (Auto) Baso # (Auto) WBC Differential Differential Comment Sodium Potassium Chloride Carbon Dioxide Anion Gap BUN Creatinine Estimated GFR POC Glucose 284 H 139 H Random Glucose Calcium Total Bilirubin AST ALT Alkaline Phosphatase Total Protein Albumin Lipase Urine Color Urine Clarity Urine pH Ur Specific [place] Urine Protein Urine Glucose (UA) Urine Ketones Urine Occult Blood Urine Nitrate Urine Bilirubin Urine Urobilinogen Ur Leukocyte Esterase Urine RBC Urine WBC Urine WBC Clumps Ur Squamous Epith Cells Urine Bacteria Urine Mucus Ur Microscopic Review Salicylates Urine Opiates Screen Acetaminophen Ur Barbiturates Screen Ur Amphetamines Screen U Benzodiazepines Scrn [place] 0.5 Urine Cocaine Screen U Cannabinoids Screen Serum Alcohol 12/27/17 12/27/17 12/27/17 20:16 20:16 19:23 WBC RBC Hgb Hct MCV MCH MCHC RDW Plt Count MPV Neut % (Auto) Lymph % (Auto) [place] % (Auto) Eos % (Auto) Baso % (Auto) Neut # (Auto) Lymph # (Auto) [place] # (Auto) Eos # (Auto) Baso # (Auto) WBC Differential Differential Comment Sodium Potassium Chloride Carbon Dioxide Anion Gap BUN Creatinine Estimated GFR POC Glucose Random Glucose Calcium Total Bilirubin AST ALT Alkaline Phosphatase Total Protein Albumin Lipase Urine Color Yellow Urine Clarity Cloudy H Urine pH 7.0 Ur Specific [place] 1.009 Urine Protein Negative Urine Glucose (UA) Negative Urine Ketones Negative Urine Occult Blood Negative Urine Nitrate Negative Urine Bilirubin Negative Urine Urobilinogen Less than 2 Ur Leukocyte Esterase Large H Urine RBC 2 Urine WBC Urine WBC Clumps Many H Ur Squamous Epith Cells <1 Urine Bacteria Moderate H Urine Mucus Few H Ur Microscopic Review Not Reportable Salicylates Less than 1.7 L Urine Opiates Screen Neg Acetaminophen Ur Barbiturates Screen Neg Ur Amphetamines Screen Neg U Benzodiazepines Scrn Neg [place] Urine Cocaine Screen Neg U Cannabinoids Screen Neg Serum Alcohol 12/27/17 12/27/17 12/27/17 19:23 19:23 19:23 WBC RBC Hgb Hct MCV MCH MCHC RDW Plt Count MPV Neut % (Auto) Lymph % (Auto) [place] % (Auto) Eos % (Auto) Baso % (Auto) Neut # (Auto) Lymph # (Auto) [place] # (Auto) Eos # (Auto) Baso # (Auto) WBC Differential Differential Comment Sodium 141 Potassium 3.9 Chloride 106 Carbon Dioxide 29.9 Anion Gap 5 BUN 11 Creatinine 1.07 Estimated GFR 73 L POC Glucose Random Glucose 117 H Calcium 9.2 Total Bilirubin 0.6 AST 13 L ALT 28 Alkaline Phosphatase 88 Total Protein 7.6 Albumin 3.6 Lipase 18 L Urine Color Urine Clarity Urine pH Ur Specific [place] Urine Protein Urine Glucose (UA) Urine Ketones Urine Occult Blood Urine Nitrate Urine Bilirubin Urine Urobilinogen Ur Leukocyte Esterase Urine RBC Urine WBC Urine WBC Clumps Ur Squamous Epith Cells Urine Bacteria Urine Mucus Ur Microscopic Review Salicylates Urine Opiates Screen Acetaminophen Cancelled Less than 2.0 L Ur Barbiturates Screen Ur Amphetamines Screen U Benzodiazepines Scrn [place] Urine Cocaine Screen U Cannabinoids Screen Serum Alcohol Cancelled Less than 3 12/27/17 12/27/17 19:23 19:17 WBC 6.4 RBC 4.53 Hgb 14.0 Hct 39.1 MCV 86.2 MCH 30.8 MCHC 35.7 RDW 13.5 Plt Count 158 MPV 7.1 Neut % (Auto) 53.3 Lymph % (Auto) 31.4 [place] % (Auto) 11.7 H Eos % (Auto) 2.5 Baso % (Auto) 1.1 Neut # (Auto) 3.4 Lymph # (Auto) 2.0 [place] # (Auto) 0.8 Eos # (Auto) 0.2 Baso # (Auto) 0.1 WBC Differential . Differential Comment Auto diff final Sodium Potassium Chloride Carbon Dioxide Anion Gap BUN Creatinine Estimated GFR POC Glucose 136 H Random Glucose Calcium Total Bilirubin AST ALT Alkaline Phosphatase Total Protein Albumin Lipase Urine Color Urine Clarity Urine pH Ur Specific [place] Urine Protein Urine Glucose (UA) Urine Ketones Urine Occult Blood Urine Nitrate Urine Bilirubin Urine Urobilinogen Ur Leukocyte Esterase Urine RBC Urine WBC Urine WBC Clumps Ur Squamous Epith Cells Urine Bacteria Urine Mucus Ur Microscopic Review Salicylates Urine Opiates Screen Acetaminophen Ur Barbiturates Screen Ur Amphetamines Screen U Benzodiazepines Scrn [place] Urine Cocaine Screen U Cannabinoids Screen Serum Alcohol - Impressions ITS Impressions Chest X-Ray 12/27/17 19:21 CONCLUSION: Under aerated otherwise negative Head CT 12/27/17 20:06 CONCLUSION: 1. Negative for acute process . Discharge Plan - Discharge Disposition Patient Disposition: Discharge Home - Discharge Order Discharge Orders: Discharge Order (Routine); Ordered 12/28/17 Ordered By: Cecelia Nugent - Physicians Team Primary Care Provider: Primary Care Viktoriya Damian Attending Provider: Mary Mendez
[2017-12-28] MEDS ORDERED: Senna/Docusate Sodium 8.6/50 MG Tablet PO SCH (09:00)
[2017-12-28] MEDS: Insulin NovoLOG Aspart Correctional Sugar Inj SQ SCH ×2 (09:12→09:16)
[2017-12-28] MEDS ORDERED: Sodium Chloride 0.9% 2 ML Flush PRN IV.FLUSH (09:51)
[2017-12-28] MEDS: Sod Chloride 0.9% Inj 1,000 ML IV.CONT SCH (09:56)
[2017-12-28] MEDS ORDERED: Propranolol 10 MG Tablet PO SCH (10:00)
[2017-12-28] MEDS ORDERED: Finasteride 5 MG Tablet PO SCH (10:00)
[2017-12-28] MEDS ORDERED: Famotidine 20 MG Tablet PO SCH (10:00)
[2017-12-28] MEDS ORDERED: Sodium Chloride 0.9% 2 ML Flush BID IV.FLUSH SCH (21:00)
== END 2017-12-28 12:18 | disposition home or self-care (01) ==
LOC: NEPE 18:58 → NEDA 18:58 → NEPGCP 12-28 00:17
PROVIDERS: ADMIT Family Medicine; ATTEND Family Medicine

== ENCOUNTER 2017-12-29 00:26 | Observation (INO) ==
[2017-12-29] MEDS ORDERED: Sod Chloride 0.9% Inj 1,000 ML IV.SIG ONE (00:40)
[2017-12-29 00:46] VITALS: RESP 16
--- NOTE | 2017-12-29 01:09 | ED ---
HPI General Chief complaint: Altered Mental Status Stated complaint: mental status issues Time Seen by Provider: 12/29/17 00:29 Source: EMS Mode of arrival: EMS Limitations: altered mental status History of Present Illness HPI narrative: The patient is a 52 year old male who presents to the [facility] emergency department with a history of altered mentation noted by bystanders prior to arrival. The patient was noted to be sitting on the bridge confused. The patient thought he was in [place]. The patient had a bag with him with recent discharge papers from the hospital from yesterday. The patient was discharged with a urinary tract infection and altered mentation. He has not filled his prescription for antibiotic. The patient is oriented to person, however not place, time, or situation. The patient is unsure whether he said any fevers. He denies having any vomiting or diarrhea. He denies having any abdominal pain. He denies having any chest pain, chest pressure, or shortness of breath. Unfortunately, the patient's history is limited given his altered mentation, confusion. The patient's other history is obtained from reviewing the electronic medical record. Related Data Home Medications Medication Instructions Recorded Confirmed escitalopram oxalate 20 mg PO DAILY 12/27/17 12/29/17 famotidine 20 mg PO DAILY 12/27/17 12/29/17 finasteride 5 mg PO DAILY 12/27/17 12/29/17 quetiapine 400 mg PO BID 12/27/17 12/29/17 sitagliptin [Januvia] 50 mg PO DAILY 12/27/17 12/29/17 tamsulosin 0.4 mg PO DAILY 12/27/17 12/29/17 lithium carbonate 600 mg PO BID 12/29/17 12/29/17 Previous Rx's Medication Instructions Recorded cephalexin 500 mg PO Q12H #14 cap 12/28/17 Allergies Allergy/AdvReac Type Severity Reaction Status Date / Time No Known Allergies Allergy Verified 12/29/17 18:29 Review of Systems ROS Unobtainable ROS Unobtainable: other (Review of systems was limited due to the patient's altered mentation.) Constitutional Denies fever(s) Eyes Denies change in vision ENT Denies headache(s) and Denies nasal congestion Cardiovascular Denies chest pain Respiratory Denies dyspnea Gastrointestinal Denies abdominal pain Genitourinary Reports difficulty urinating Musculoskeletal Denies myalgias Integumentary/Breasts Denies rash Neurologic Denies headache(s) Psychiatric Denies depression Endocrine Denies polyuria Hematologic/Lymphatic Denies easy bruising [facility] Medical History Medical History Depression (Acute) Diabetes (Acute) ETOH abuse (Acute) Kidney stones (Acute) Social History Social History Substance History: No History of Abuse Second Hand Smoke Exposure: No Smoking Status: Never smoker How Often Do You Have a Drink Containing Alcohol: Never Immunization History Tetanus Immunization: Unable to Assess Exam Const General: cooperative, no acute distress and well developed Nutritional Appearance: well nourished Orientation: alert, awake, oriented to person, not oriented to place and not oriented to time HENMT Head: normocephalic and atraumatic Nose: no nasal discharge and no epistaxis Mouth: other (Tacky mucous membranes.) Throat: posterior oropharynx normal and uvula midline Eyes Sclera: normal sclerae Pupils: PERRL Neck Neck: no meningeal signs, trachea midline and no JVD Resp Effort & Inspection: no use of accessory muscles Auscultation: clear to auscultation bilaterally Cardio Rate: tachycardic (Sinus tachycardia in the low 100s, no pulse deficits to the extremities on simultaneous auscultation and palpation of his radial artery) Rhythm: regular rhythm Heart Sounds: no murmurs GI Inspection: non-distended Palpation: soft, no hepatosplenomegaly, no guarding, not rigid and tender (The patient had suprapubic prominence suggestive of bladder distention. A Med[place] catheter was placed to gravity and the patient had out 1 L of urine.) suprapubicly; not in the LLQ, not in the RLQ, not in the LUQ, not in the RUQ, not at McBurney's point and with no rebound tenderness Auscultation: normal bowel sounds Back/Spine/Pelvis Back: no CVA tenderness Skin General: dry skin (warm) Neuro General: alert, awake and oriented (Person, however not place, time, or situation) Cranial Nerves: CN's II-XI intact bilaterally Speech: speech normal Motor: strength 5/5 throughout and no movement abnormalities noted Sensory Exam: no sensory deficits noted Extrem General: normal to inspection, no clubbing, no cyanosis and no edema Psych Mood: congruent mood Affect: normal affect Judgment: judgment good Course Initial Documented Vital Signs Temperature 97.6 F 12/29/17 00:40 Pulse Rate 101 H 12/29/17 00:40 Respiratory Rate 16 12/29/17 00:40 Blood Pressure 137/82 12/29/17 00:40 Pulse Oximetry 96 12/29/17 00:40 Last Documented Vital Signs Temperature 97.8 F 12/29/17 07:28 Pulse Rate 87 12/29/17 07:28 Respiratory Rate 16 12/29/17 07:28 Blood Pressure 118/77 12/29/17 07:28 Pulse Oximetry 97 12/29/17 07:28 Medical Decision Making MDM Narrative Medical decision making narrative: The patient's diagnostic studies are remarkable for a normal white count at 6.1, hemoglobin 13.5, platelets 164 with 9.71During the course of the patient's emergency department visit, the patient' s history, examination, and differential diagnosis were reviewed with the patient. The patient was placed on a environmental monitoring specialist with oximetry and frequent blood pressure monitoring. The patient had IV access obtained and blood work sent for analysis. A diagnostic evaluation was started regarding the patient's altered mentation which appears to be related to delirium. On examination the patient had suprapubic prominence and difficulty urinating. A Medrano catheter was placed to gravity and the patient was noted to have urinary retention with 1 L of urine out immediately upon Medrano catheter placement. The patient was initially provided normal saline IV fluids. The patient was continued on antibiotic. The patient was given Rocephin 1 g IV. , Chemistries remarkable for a glucose of 274, GFR of 69, AST 12, troponin I less than 0.02, CPK within normal limits, lipase 12, urine drug screen is negative, acetaminophen is less than 2. The patient's ammonia level is found to be within normal limits. The patient's case including history, pertinent physical examination findings, and laboratory studies were discussed with Dr. Harper. It was agreed that the patient would be admitted to the hospitalist service. The patient's results were discussed with the patient, including the plan of care. I explained that further testing and/ or monitoring is indicated based on the patient's history, examination, and/ or laboratory findings. Therefore, I recommended admission for additional evaluation. The patient expressed understanding and was agreeable with this plan. The patient was admitted to the hospital in guarded condition and sent to a bed under the care of [facility] service. Medical Screen Exam Complete: Yes Emergency Medical Condition: Yes Differential Diagnosis Differential Diagnosis: Delirium from urinary tract infection, versus hepatic encephalopathy, versus other encephalopathy. Medical Records Medical records reviewed: Yes I reviewed the patient's medical records. Lab Data Lab results reviewed: Yes I reviewed the patient's lab results. Result diagrams: 12/29/17 00:55 12/29/17 00:55 Lab Results 12/29/17 12/29/17 12/29/17 Range/Units 00:55 00:55 00:55 WBC (4.0-11.0) th/mm3 RBC (4.50-5.90) mil/mm3 Hgb (13.0-17.0) gm/dL Hct (39.0-51.0) % MCV (80.0-100.0) fL MCH (27.0-34.0) pg MCHC (32.0-36.0) % RDW (11.6-17.2) % Plt Count (150-450) th/mm3 MPV (7.0-11.0) fL Neut % (Auto) (16.0-70.0) % Lymph % (Auto) (9.0-44.0) % [place] % (Auto) (0.0-8.0) % Eos % (Auto) (0.0-4.0) % Baso % (Auto) (0.0-2.0) % Neut # (Auto) (1.8-7.7) th/mm3 Lymph # (Auto) (1.0-4.8) th/mm3 [place] # (Auto) (0.0-0.9) th/mm3 Eos # (Auto) (0.0-0.4) th/mm3 Baso # (Auto) (0.0-0.2) th/mm3 WBC Differential Differential Comment Sodium (136-145) meq/L Potassium (3.5-5.1) meq/L Chloride (98-107) meq/L Carbon Dioxide (21.0-32.0) meq/L Anion Gap (5-15) meq/L BUN (7-18) mg/dL Creatinine (0.60-1.30) mg/dL Estimated GFR (>89) mL/min Random Glucose (74-106) mg/dL Calcium (8.5-10.1) mg/dL Total Bilirubin (0.2-1.0) mg/dL AST (15-37) U/L ALT (12-78) U/L Alkaline Phosphatase (45-117) U/L Ammonia (11-32) mcmol/L Total Creatine Kinase (39-308) U/L Troponin I (0.02-0.05) ng/mL Total Protein (6.4-8.2) g/dL Albumin (3.4-5.0) g/dL Lipase 10 L (73-393) U/L Salicylates Less than 1.7 L (2.8-20.0) mg/dL Urine Opiates Screen (Neg) Acetaminophen Less than 2.0 L (10.0-30.0) mcg/mL Ur Barbiturates Screen (Neg) Ur Amphetamines Screen (Neg) U Benzodiazepines Scrn (Neg) [place] 0.4 L (0.5-1.5) meq/L Urine Cocaine Screen (Neg) U Cannabinoids Screen (Neg) Serum Alcohol Less than 3 (0-5) mg/dL 12/29/17 12/29/17 12/29/17 Range/Units 00:55 00:55 00:55 WBC 6.1 (4.0-11.0) th/mm3 RBC 4.54 (4.50-5.90) mil/mm3 Hgb 13.5 (13.0-17.0) gm/dL Hct 39.3 (39.0-51.0) % MCV 86.4 (80.0-100.0) fL MCH 29.7 (27.0-34.0) pg MCHC 34.4 (32.0-36.0) % RDW 13.6 (11.6-17.2) % Plt Count 164 (150-450) th/mm3 MPV 7.2 (7.0-11.0) fL Neut % (Auto) 62.3 (16.0-70.0) % Lymph % (Auto) 24.2 (9.0-44.0) % [place] % (Auto) 9.7 H (0.0-8.0) % Eos % (Auto) 2.8 (0.0-4.0) % Baso % (Auto) 1.0 (0.0-2.0) % Neut # (Auto) 3.8 (1.8-7.7) th/mm3 Lymph # (Auto) 1.5 (1.0-4.8) th/mm3 [place] # (Auto) 0.6 (0.0-0.9) th/mm3 Eos # (Auto) 0.2 (0.0-0.4) th/mm3 Baso # (Auto) 0.1 (0.0-0.2) th/mm3 WBC Differential . Differential Comment Auto diff final Sodium 136 (136-145) meq/L Potassium 3.8 (3.5-5.1) meq/L Chloride 101 (98-107) meq/L Carbon Dioxide 24.2 (21.0-32.0) meq/L Anion Gap 11 (5-15) meq/L BUN 15 (7-18) mg/dL Creatinine 1.13 (0.60-1.30) mg/dL Estimated GFR 69 L (>89) mL/min Random Glucose 274 H (74-106) mg/dL Calcium 8.6 (8.5-10.1) mg/dL Total Bilirubin 0.7 (0.2-1.0) mg/dL AST 12 L (15-37) U/L ALT 24 (12-78) U/L Alkaline Phosphatase 94 (45-117) U/L Ammonia 30 (11-32) mcmol/L Total Creatine Kinase 88 (39-308) U/L Troponin I Less than 0.02 L (0.02-0.05) ng/mL Total Protein 7.5 (6.4-8.2) g/dL Albumin 3.8 (3.4-5.0) g/dL Lipase 12 L (73-393) U/L Salicylates (2.8-20.0) mg/dL Urine Opiates Screen (Neg) Acetaminophen Less than 2.0 L (10.0-30.0) mcg/mL Ur Barbiturates Screen (Neg) Ur Amphetamines Screen (Neg) U Benzodiazepines Scrn (Neg) [place] (0.5-1.5) meq/L Urine Cocaine Screen (Neg) U Cannabinoids Screen (Neg) Serum Alcohol Less than 3 (0-5) mg/dL 12/29/17 Range/Units 01:50 WBC (4.0-11.0) th/mm3 RBC (4.50-5.90) mil/mm3 Hgb (13.0-17.0) gm/dL Hct (39.0-51.0) % MCV (80.0-100.0) fL MCH (27.0-34.0) pg MCHC (32.0-36.0) % RDW (11.6-17.2) % Plt Count (150-450) th/mm3 MPV (7.0-11.0) fL Neut % (Auto) (16.0-70.0) % Lymph % (Auto) (9.0-44.0) % [place] % (Auto) (0.0-8.0) % Eos % (Auto) (0.0-4.0) % Baso % (Auto) (0.0-2.0) % Neut # (Auto) (1.8-7.7) th/mm3 Lymph # (Auto) (1.0-4.8) th/mm3 [place] # (Auto) (0.0-0.9) th/mm3 Eos # (Auto) (0.0-0.4) th/mm3 Baso # (Auto) (0.0-0.2) th/mm3 WBC Differential Differential Comment Sodium (136-145) meq/L Potassium (3.5-5.1) meq/L Chloride (98-107) meq/L Carbon Dioxide (21.0-32.0) meq/L Anion Gap (5-15) meq/L BUN (7-18) mg/dL Creatinine (0.60-1.30) mg/dL Estimated GFR (>89) mL/min Random Glucose (74-106) mg/dL Calcium (8.5-10.1) mg/dL Total Bilirubin (0.2-1.0) mg/dL AST (15-37) U/L ALT (12-78) U/L Alkaline Phosphatase (45-117) U/L Ammonia (11-32) mcmol/L Total Creatine Kinase (39-308) U/L Troponin I (0.02-0.05) ng/mL Total Protein (6.4-8.2) g/dL Albumin (3.4-5.0) g/dL Lipase (73-393) U/L Salicylates (2.8-20.0) mg/dL Urine Opiates Screen Neg (Neg) Acetaminophen (10.0-30.0) mcg/mL Ur Barbiturates Screen Neg (Neg) Ur Amphetamines Screen Neg (Neg) U Benzodiazepines Scrn Neg (Neg) [place] (0.5-1.5) meq/L Urine Cocaine Screen Neg (Neg) U Cannabinoids Screen Neg (Neg) Serum Alcohol (0-5) mg/dL Discharge Plan Discharge Disposition Patient Disposition: 30 Still Patient Discharge Condition Condition: Stable Discharge Order Discharge Orders: Discharge Order (Routine); Ordered 12/29/17 Ordered By: Gina Cedeño Discharge Details Anticipated Discharge Date: 12/29/17 Diagnosis: Altered mental status, UTI (urinary tract infection), Acute urinary retention Physicians Team ED Provider: Mary Lynn Primary Care Provider: UNKNOWN, Attending Provider: Juan Carlos Elise Other Providers: Mat Alatorre Status ED Status: Left Department Discharge Information Discharge Date/Time: 12/29/17 06:51
[2017-12-29 01:30] LABS: Baso # (Auto) 0.1 th/mm3 (0.0-0.2); Eos # (Auto) 0.2 th/mm3 (0.0-0.4); Eos % (Auto) 2.8 % (0.0-4.0); Hematocrit 39.3 % (39.0-51.0); Hemoglobin 13.5 gm/dL (13.0-17.0); Lymph # (Auto) 1.5 th/mm3 (1.0-4.8); Lymph % (Auto) 24.2 % (9.0-44.0); Mean Corpuscular HGB Conc 34.4 % (32.0-36.0); Mean Corpuscular Hemoglobin 29.7 pg (27.0-34.0); Mean Corpuscular Volume 86.4 fL (80.0-100.0); Mean Platelet Volume 7.2 fL (7.0-11.0); Mono # (Auto) 0.6 th/mm3 (0.0-0.9); Mono % (Auto) 9.7 % (0.0-8.0); Neut # (Auto) 3.8 th/mm3 (1.8-7.7); Neut % (Auto) 62.3 % (16.0-70.0); Platelet Count 164 th/mm3 (150-450); Red Blood Count 4.54 mil/mm3 (4.50-5.90); Red Cell Distribution Width 13.6 % (11.6-17.2); White Blood Count 6.1 th/mm3 (4.0-11.0)
[2017-12-29 01:53] LABS: Lipase 10 U/L (73-393)
[2017-12-29 02:18] LABS: Barbiturate Screen,Urine Neg (Neg); Cannabinoid Screen,Urine Neg (Neg); Cocaine Screen,Urine Neg (Neg)
[2017-12-29 02:31] LABS: Amphetamine Screen,Urine Neg (Neg)
[2017-12-29 02:35] LABS: Opiate Screen,Urine Neg (Neg)
[2017-12-29 02:49] LABS: Anion Gap 11 meq/L (5-15)
[2017-12-29 02:57] LABS: Alanine Aminotransferase 24 U/L (12-78); Albumin 3.8 g/dL (3.4-5.0); Alkaline Phosphatase 94 U/L (45-117); Aspartate Aminotransferase 12 U/L (15-37); Blood Urea Nitrogen 15 mg/dL (7-18); Calcium 8.6 mg/dL (8.5-10.1); Carbon Dioxide 24.2 meq/L (21.0-32.0); Chloride 101 meq/L (98-107); Creatine Kinase 88 U/L (39-308); Glomerular Filtration Rate 69 mL/min (>89); Glucose,Random 274 mg/dL (74-106); Lipase 12 U/L (73-393); Potassium 3.8 meq/L (3.5-5.1); Sodium 136 meq/L (136-145); Total Protein 7.5 g/dL (6.4-8.2)
[2017-12-29] MEDS ORDERED: Bisacodyl 10 MG Supp RECTAL PRN (04:03)
--- NOTE | 2017-12-29 04:22 | P.HP ---
History of Present Illness Service: [facility] Primary Care Physician: UNKNOWN History of Present Illness: 52-year-old male with past medical history significant for depression, diabetes mellitus and alcohol abuse presents to the emergency department for evaluation of altered mental status. The patient was found sitting on a bridge confused and bystanders called EMS. The patient thought that he was in [place] at that time. He currently states that he is in [place] but does not know that he is in the hospital. He was admitted to [facility] on 12/27 for similar symptoms, was diagnosed with a urinary tract infection, discharged with antibiotics after his mentation returned to normal. The patient has no memory of this hospital stay. He states he has been taking all of his medications. Of note, it was suspected that the patient had overdosed on Rozerem at his last visit. Tox screen, alcohol level, lithium level negative. Unable to obtain further history from the patient as he continually repeats "stop scarring me." It is unlikely that the patient filled his Keflex. On arrival to the emergency department, his bladder was noted to be distended and a Medrano catheter was placed, draining 1 L of urine. Review of Systems unobtainable due to mental status PMFSH - History History Provided By: Cafeteria Cashier / EMT - Medical History Medical History: Medical History (Last Updated 12/29/17 @ 04:11 by Jen Harper MD) Surgical history unknown Depression Diabetes ETOH abuse Kidney stones - Family History Family History: Family History (Last Updated 12/29/17 @ 04:11 by Jen Harper MD) Other Family history unknown - Tobacco History Second Hand Smoke Exposure: No Smoking Status: Cognitive impairment - Alcohol History How Often Do You Have a Drink Containing Alcohol: Unable to Obtain - Substance Use History Substance History: Unable to Obtain - Travel History Recent Travel in the [place] Within the Last 8 Weeks: No Recent Travel Out of the Country Within the Last 8 Weeks: No - Immunization History Tetanus Immunization: Unable to Assess Medications and Allergies Active Medications: Active Medications Al Hydroxide/Mg Hydroxide (Milk Of Magnesia Liq) 30 ml PO Q12H PRN PRN Reason: Mild Constipation Bisacodyl (Dulcolax Supp) 10 mg RECTAL DAILY PRN PRN Reason: SEVERE CONSITIPATION Ceftriaxone Sodium 1,000 mg/ (Sodium Chloride) 100 mls @ 200 mls/hr IV.SIG Q24H JEB Lactulose (Lactulose Liq) 30 ml PO DAILY PRN PRN Reason: SEVERE CONSITIPATION Ondansetron HCl (Zofran Inj) 4 mg IV.PUSH Q6H PRN PRN Reason: NAUSEA OR VOMITING Senna/Docusate Sodium (Gladys-Colace) 1 tab PO BID JEB Sennosides (Senokot) 17.2 mg PO Q12H PRN PRN Reason: Moderate Constipation Allergies Allergy/AdvReac Type Severity Reaction Status Date / Time No Allergy Information Allergy Unverified 12/27/17 19:12 Available Home Medications Medication Instructions Recorded Confirmed Type escitalopram oxalate 20 mg PO DAILY 12/27/17 12/29/17 History famotidine 20 mg PO DAILY 12/27/17 12/29/17 History finasteride 5 mg PO DAILY 12/27/17 12/29/17 History lithium carbonate 300 mg PO TID 12/27/17 12/29/17 History naltrexone 50 mg PO DAILY 12/27/17 12/29/17 History propranolol 10 mg PO BID 12/27/17 12/29/17 History quetiapine 400 mg PO BID 12/27/17 12/29/17 History ramelteon [Rozerem] 8 mg PO HS 12/27/17 12/29/17 History sitagliptin [Januvia] 50 mg PO DAILY 12/27/17 12/29/17 History tamsulosin 0.4 mg PO DAILY 12/27/17 12/29/17 History Exam Vital signs: Vital Signs 12/29/17 00:40 12/29/17 00:47 Temperature 97.6 F 97.6 F Pulse Rate 101 H 98 H Respiratory Rate 16 16 Blood Pressure 137/82 137/82 Pulse Oximetry 96 96 Intake & Output 12/28/17 12/28/17 12/29/17 06:59 18:59 06:59 Intake Total 1100 / 1100 Balance 1100 / 1100 Weight 83.915 kg Intake: IV 1100 / 1100 NS Inj 1,000 ML @ Wide Open IV. 1000 / 1000 SIG BOLUS ONE Rx#:[id number] Rocephin Inj 1,000 MG In NS Inj 100 / 100 100 ML @ 200 mls/hr IV.SIG ONCE ONE Rx#:[id number] Narrative: Gen.: male lying in bed, confused. Head: Normocephalic. Atraumatic. EENT: Pupils equal round and reactive to light. Nose without drainage. Airway intact. Throat without injection. Cardiovascular: Regular rate and rhythm. No murmurs, rubs or gallops. Respiratory: Lungs clear to auscultation bilaterally. No wheezes or rhonchi. Abdomen: Soft, nontender, nondistended. No peritoneal signs. Musculoskeletal: No gross deformities. No edema. Skin: No obvious rashes or erythema. Neuro: Sensory and motor grossly intact. Cranial nerves II through XII grossly intact. Moves all 4 extremities spontaneously. Oriented only to place and self. Results - Labs CBC & Chem 7: 12/29/17 00:55 12/29/17 00:55 Labs: Laboratory Results - last 24 hr 12/29/17 12/29/17 12/29/17 00:55 00:55 00:55 WBC RBC Hgb Hct MCV MCH MCHC RDW Plt Count MPV Neut % (Auto) Lymph % (Auto) Collin % (Auto) Eos % (Auto) Baso % (Auto) Neut # (Auto) Lymph # (Auto) Collin # (Auto) Eos # (Auto) Baso # (Auto) WBC Differential Differential Comment Sodium Potassium Chloride Carbon Dioxide Anion Gap BUN Creatinine Estimated GFR Random Glucose Calcium Total Bilirubin AST ALT Alkaline Phosphatase Ammonia Total Creatine Kinase Troponin I Total Protein Albumin Lipase 10 L Salicylates Less than 1.7 L Urine Opiates Screen Acetaminophen Less than 2.0 L Ur Barbiturates Screen Ur Amphetamines Screen U Benzodiazepines Scrn [place] 0.4 L Urine Cocaine Screen U Cannabinoids Screen Serum Alcohol Less than 3 12/29/17 12/29/17 12/29/17 00:55 00:55 00:55 WBC 6.1 RBC 4.54 Hgb 13.5 Hct 39.3 MCV 86.4 MCH 29.7 MCHC 34.4 RDW 13.6 Plt Count 164 MPV 7.2 Neut % (Auto) 62.3 Lymph % (Auto) 24.2 Collin % (Auto) 9.7 H Eos % (Auto) 2.8 Baso % (Auto) 1.0 Neut # (Auto) 3.8 Lymph # (Auto) 1.5 Collin # (Auto) 0.6 Eos # (Auto) 0.2 Baso # (Auto) 0.1 WBC Differential . Differential Comment Auto diff final Sodium 136 Potassium 3.8 Chloride 101 Carbon Dioxide 24.2 Anion Gap 11 BUN 15 Creatinine 1.13 Estimated GFR 69 L Random Glucose 274 H Calcium 8.6 Total Bilirubin 0.7 AST 12 L ALT 24 Alkaline Phosphatase 94 Ammonia 30 Total Creatine Kinase 88 Troponin I Less than 0.02 L Total Protein 7.5 Albumin 3.8 Lipase 12 L Salicylates Urine Opiates Screen Acetaminophen Less than 2.0 L Ur Barbiturates Screen Ur Amphetamines Screen U Benzodiazepines Scrn [place] Urine Cocaine Screen U Cannabinoids Screen Serum Alcohol Less than 3 12/29/17 01:50 WBC RBC Hgb Hct MCV MCH MCHC RDW Plt Count MPV Neut % (Auto) Lymph % (Auto) Collin % (Auto) Eos % (Auto) Baso % (Auto) Neut # (Auto) Lymph # (Auto) Collin # (Auto) Eos # (Auto) Baso # (Auto) WBC Differential Differential Comment Sodium Potassium Chloride Carbon Dioxide Anion Gap BUN Creatinine Estimated GFR Random Glucose Calcium Total Bilirubin AST ALT Alkaline Phosphatase Ammonia Total Creatine Kinase Troponin I Total Protein Albumin Lipase Salicylates Urine Opiates Screen Neg Acetaminophen Ur Barbiturates Screen Neg Ur Amphetamines Screen Neg U Benzodiazepines Scrn Neg [place] Urine Cocaine Screen Neg U Cannabinoids Screen Neg Serum Alcohol Caprini VTE Risk Assessment Caprini VTE Risk Assessment: No/Low Risk (score <= 1) Caprini Risk Assessment Model: Point Value = 1 Point Value = 2 Point Value = 3 Point Value = 5 Age 41-60 Minor surgery BMI > 25 kg/m2 Swollen legs Varicose veins or History of unexplained or recurrent spontaneous Oral contraceptives or hormone replacement Sepsis (< 1 month) Serious lung disease, including pneumonia (< 1 month) Abnormal pulmonary function Acute myocardial infarction Congestive heart failure (< 1 month) History of inflammatory bowel disease Medical patient at bed rest Age 61-74 Arthroscopic surgery Major open surgery (> 45 min) Laparoscopic surgery (> 45 min) Malignancy Confined to bed (> 72 hours) Immobilizing plaster cast Central venous access Age >= 75 History of VTE Family history of VTE Factor V Leiden Prothrombin [id number] Lupus anticoagulant Anticardiolipin antibodies Elevated serum homocysteine Heparin-induced thrombocytopenia Other congenital or acquired thrombophilia Stroke (< 1 month) Elective arthroplasty Hip, pelvis, or leg fracture Acute spinal cord injury (< 1 month) Prophylaxis Regimen: Total Risk Factor Score Risk Level Prophylaxis Regimen 0-1 Low Early ambulation 2 Moderate Order ONE of the following: *Sequential Compression Device (SCD) *Heparin 5000 units SQ BID 3-4 Higher Order ONE of the following medications: *Heparin 5000 units SQ TID *Enoxaparin/Lovenox 40 mg SQ daily (WT < 150 kg, CrCl > 30 mL/min) *Enoxaparin/Lovenox 30 mg SQ daily (WT < 150 kg, CrCl > 10-29 mL/min) *Enoxaparin/Lovenox 30 mg SQ BID (WT < 150 kg, CrCl > 30 mL/min) AND/OR *Sequential Compression Device (SCD) 5 or more Highest Order ONE of the following medications: *Heparin 5000 units SQ TID (Preferred with Epidurals) *Enoxaparin/Lovenox 40 mg SQ daily (WT < 150 kg, CrCl > 30 mL/min) *Enoxaparin/Lovenox 30 mg SQ daily (WT < 150 kg, CrCl > 10-29 mL/min) *Enoxaparin/Lovenox 30 mg SQ BID (WT < 150 kg, CrCl > 30 mL/min) AND *Sequential Compression Device (SCD) Assessment and Plan - Plan Assessment/plan: 1. Altered mental status Unclear etiology Toxicology screen negative, lithium level subtherapeutic, alcohol level less than 3, ammonia within normal limits Head CT negative on 12/27/17 Unclear if patient has been taking his home medications and and what quantities Diagnosed with urinary tract infection and presents today with urinary retention Rocephin Monitor closely If symptoms do not resolve, neurology consult and MRI may be warranted 2. Diabetes mellitus Sliding scale insulin Monitor blood glucose 3. Urinary tract infection/urinary retention Treatment as above Continue Medrano catheter, plan for void trial later today Continue finasteride If patient fails void trial, consider urology consult 4. Depression/? Bipolar disorder [place] level subtherapeutic Holding sedating medications at this time Psychiatry consulted for assistance with lithium dosing and evaluation of possible psychosis versus delirium FEN Regular diet Electrolytes: Monitor and replete as needed
[2017-12-29 07:31] VITALS: BP 118/77; PULSE 87; TEMP 97.8; O2SAT 97
[2017-12-29] MEDS ORDERED: Senna/Docusate Sodium 8.6/50 MG Tablet PO SCH (09:00)
[2017-12-29] MEDS ORDERED: Finasteride 5 MG Tablet PO SCH (09:00)
[2017-12-29] MEDS ORDERED: Famotidine 20 MG Tablet PO SCH (09:00)
--- NOTE | 2017-12-29 10:27 | P.PN ---
Subjective Interval history: Follow-up for AMS. The patient is heavily sleeping upon my arrival, awakens to touch. He states he feels fine today, other than feeling very fatigued. He has no recollection of how he ended up in the hospital again. He is currently oriented to [facility], [place], [place], and December 2017. He states he was out of all of his medications for approximately 3 weeks, but he did restart his medications yesterday after he got them filled. He denies any fever/chills. He does report that recently he was having some burning with urination. He currently has a Medrano catheter in place and is requesting this be removed. He states he has had problems with urinary retention in the past and he takes medication for this, but he has been out of his Proscar and Flomax recently. He denies any other medical complaints including no headache, lightheadedness, dizziness, chest pain, palpitations, shortness of breath, or abdominal complaints. Physical Exam Vital signs: Vital Signs 12/29/17 00:40 12/29/17 00:47 12/29/17 07:28 Temperature 97.6 F 97.6 F 97.8 F Pulse Rate 101 H 98 H 87 Respiratory Rate 16 16 16 Blood Pressure 137/82 137/82 118/77 Pulse Oximetry 96 96 97 Intake & Output 12/28/17 12/29/17 12/29/17 18:59 06:59 18:59 Intake Total 1100 / 1100 Balance 1100 / 1100 Weight 83.915 kg Intake: IV 1100 / 1100 NS Inj 1,000 ML @ Wide Open IV. 1000 / 1000 SIG BOLUS ONE Rx#:[id number] Rocephin Inj 1,000 MG In NS Inj 100 / 100 100 ML @ 200 mls/hr IV.SIG ONCE ONE Rx#:[id number] Narrative: GENERAL: Well-nourished, well-developed middle-age male patient in NAD. Drowsy , but arousable. SKIN: Warm and dry. No rash. HEENT: Normocephalic. Atraumatic. Pupils equal and round. Mucous membranes pink and moist. NECK: Supple. Trachea midline. CARDIOVASCULAR: Regular rate and rhythm. No murmur appreciated. RESPIRATORY: No accessory muscle use. Clear to auscultation. Breath sounds equal bilaterally. GASTROINTESTINAL: Abdomen soft, non-tender, nondistended. Normoactive bowel sounds x4. MUSCULOSKELETAL: No obvious deformities. Extremities without clubbing, cyanosis , or edema. NEUROLOGICAL: Awake and alert, oriented to person, place, time, but not event. No obvious cranial nerve deficits. Motor grossly within normal limits. Moving all extremities spontaneously. Normal speech. PSYCHIATRIC: Appropriate mood and affect; insight and judgment normal. - Urinary Catheter Management Indwelling Urethral Catheter Cath placed during this visit: yes Reason for continuing: Acute urinary retention Insertion date: 12/29/17 Insertion time: 04:51 Results - Labs CBC & Chem 7: 12/29/17 00:55 12/29/17 00:55 Laboratory Results - last 24 hr 12/29/17 12/29/17 12/29/17 00:55 00:55 00:55 WBC RBC Hgb Hct MCV MCH MCHC RDW Plt Count MPV Neut % (Auto) Lymph % (Auto) Dixie % (Auto) Eos % (Auto) Baso % (Auto) Neut # (Auto) Lymph # (Auto) Dixie # (Auto) Eos # (Auto) Baso # (Auto) WBC Differential Differential Comment Sodium Potassium Chloride Carbon Dioxide Anion Gap BUN Creatinine Estimated GFR Random Glucose Calcium Total Bilirubin AST ALT Alkaline Phosphatase Ammonia Total Creatine Kinase Troponin I Total Protein Albumin Lipase 10 L Salicylates Less than 1.7 L Urine Opiates Screen Acetaminophen Less than 2.0 L Ur Barbiturates Screen Ur Amphetamines Screen U Benzodiazepines Scrn Pabellones 0.4 L Urine Cocaine Screen U Cannabinoids Screen Serum Alcohol Less than 3 12/29/17 12/29/17 12/29/17 00:55 00:55 00:55 WBC 6.1 RBC 4.54 Hgb 13.5 Hct 39.3 MCV 86.4 MCH 29.7 MCHC 34.4 RDW 13.6 Plt Count 164 MPV 7.2 Neut % (Auto) 62.3 Lymph % (Auto) 24.2 Dixie % (Auto) 9.7 H Eos % (Auto) 2.8 Baso % (Auto) 1.0 Neut # (Auto) 3.8 Lymph # (Auto) 1.5 Dixie # (Auto) 0.6 Eos # (Auto) 0.2 Baso # (Auto) 0.1 WBC Differential . Differential Comment Auto diff final Sodium 136 Potassium 3.8 Chloride 101 Carbon Dioxide 24.2 Anion Gap 11 BUN 15 Creatinine 1.13 Estimated GFR 69 L Random Glucose 274 H Calcium 8.6 Total Bilirubin 0.7 AST 12 L ALT 24 Alkaline Phosphatase 94 Ammonia 30 Total Creatine Kinase 88 Troponin I Less than 0.02 L Total Protein 7.5 Albumin 3.8 Lipase 12 L Salicylates Urine Opiates Screen Acetaminophen Less than 2.0 L Ur Barbiturates Screen Ur Amphetamines Screen U Benzodiazepines Scrn Pabellones Urine Cocaine Screen U Cannabinoids Screen Serum Alcohol Less than 3 12/29/17 01:50 WBC RBC Hgb Hct MCV MCH MCHC RDW Plt Count MPV Neut % (Auto) Lymph % (Auto) Dixie % (Auto) Eos % (Auto) Baso % (Auto) Neut # (Auto) Lymph # (Auto) Dixie # (Auto) Eos # (Auto) Baso # (Auto) WBC Differential Differential Comment Sodium Potassium Chloride Carbon Dioxide Anion Gap BUN Creatinine Estimated GFR Random Glucose Calcium Total Bilirubin AST ALT Alkaline Phosphatase Ammonia Total Creatine Kinase Troponin I Total Protein Albumin Lipase Salicylates Urine Opiates Screen Neg Acetaminophen Ur Barbiturates Screen Neg Ur Amphetamines Screen Neg U Benzodiazepines Scrn Neg Pabellones Urine Cocaine Screen Neg U Cannabinoids Screen Neg Serum Alcohol Assessment and Plan - Plan 52-year-old male with past medical history significant for depression, diabetes mellitus and alcohol abuse presents to the emergency department for evaluation of altered mental status. The patient was found sitting on a bridge confused and bystanders called EMS. He was [place] [facility] [place] for similar symptoms , was diagnosed with a UTI, discharged with antibiotics after his mentation returned to normal. Altered mental status/encephalopathy: Unclear etiology, suspect secondary to UTI versus misuse of medications -Toxicology screen negative, lithium level subtherapeutic, alcohol level less than 3, ammonia within normal limits -Head CT negative on 12/27/17 -Unclear if patient has been taking his home medications and and what quantities -Diagnosed with urinary tract infection and presents with urinary retention, continue antibiotics -Monitor closely, neuro checks, monitor on telemetry -If symptoms do not resolve, neurology consult and MRI may be warranted -Mental status improving, oriented x3/4 today, possible component of malingering, history and exam inconsistent between providers and nurses, patient is homeless Diabetes mellitus: Chronic -Holding patient's home oral hypoglycemics for now until eating -Monitor Accu-Cheks and cover with sliding scale insulin Urinary tract infection/urinary retention: Acute -no urine culture done on previous admission, although had +leuks/WBCs -S/p Medrano catheter placed in the ER 12/28, will remove today 12/29 for void trial -Continue patient's flomax and finasteride -Collected urine culture, pending at time of transfer to psychiatry -If patient fails void trial, consider urology consult and abdominal imaging -continued Keflex upon discharge to psychiatry, f/up urine culture Depression/? Bipolar disorder: acute on chronic -Pabellones level subtherapeutic, continue lithium for now -Holding sedating medications at this time -Psychiatry consulted for assistance with lithium dosing and evaluation of possible psychosis versus delirium -Discussed with Dr. Alatorre, patient voiced suicidal ideations, admit voluntarily to inpatient psychiatry unit DVT Prophylaxis: teds/SCDs Discharge Planning: The patient is medically stable for discharge to inpatient psychiatry. Continue Keflex for UTI and follow up on urine culture collected during this visit. Discharge patient to inpatient psychiatry Condition on discharge: Stable Diabetic Diet as tolerated Ad Tracee activity Rx written: continued Keflex prescribed on previous visit Follow-up with primary care physician and psychiatry
[2017-12-29] MEDS ORDERED: Sodium Chloride 0.9% 2 ML Flush PRN IV.FLUSH (12:58)
--- NOTE | 2017-12-29 13:45 | P.CONPSY ---
Provisional Diagnosis Admission Date: December 29, 2017 03:36 Valdez I.: Bipolar depression, alcohol use disorder in sustained remission Valdez II.: Deferred Valdez III.: Diabetes, BPH, hypertension History of Present Illness Service: ER Primary Care Provider: UNKNOWN History of Present Illness: The patient is a 52-year-old man, domiciled in [place], single, unemployed, on SSI process, with a self-reported psychiatric history of bipolar disorder, anxiety, alcohol use disorder in sustained remission, he denies previous psychiatric hospitalizations, 2 previous suicide attempts by overdosing , he is in lithium 600 mg twice daily, Lexapro 20 mg, Xanax 2 mg 3 times daily, prescribed by outpatient provider in the [place] area, with past medical history significant diabetes mellitus and alcohol abuse presents to the emergency department for evaluation of altered mental status. The patient was found sitting on a bridge confused and bystanders called EMS. He was admitted to [facility] on 12/27 for similar symptoms, was diagnosed with a UTI, discharged with antibiotics after his mentation returned to normal. Patient was admitted due to altered mental status/encephalopathy: Unclear etiology, suspect secondary to UTI versus misuse of medications. Toxicology screen negative, lithium level subtherapeutic 0.4, alcohol level less than 3, ammonia within normal limits. Head CT negative on 12/27/17. Consulted to psychiatry to address potential psychosis versus delirium. On psychiatric evaluation today I find a patient that is calm, cooperative, stating that he feels much better. However, he says that he has been increasingly depressed in the last months, to the point that yesterday he was thinking to commit suicide. He says that he has been contemplated to overdose because his life is going down the heel lately. He says that he just finished a rehabilitation program in the [facility], he was living in a sober house, but he left last week and he has been homeless. He says that he is to be a reach person, business, his house, a lot of friends " but due to my alcoholism and bipolar decompensation I lost everything". When I asked him about symptomatology of bipolar disorder he expresses that he has been very depressed in the past, he has tried to commit suicide, but he denies that he has been hospitalized. He says that the lesion has been very helpful, but in the last weeks he has not been compliant due to lack of resources. He says that he was also responsive to Lexapro 20 mg, but the same he has not taken this medication in the last 3 weeks. The patient reports that he has been putting a sleeping, with appetite, and weight loss. He also reports acute anxiety given the fact that he is not taking his Xanax. He reports hopelessness , helplessness, worthlessness, and persistent suicidal ideation. The patient is fully oriented x3, no attention deficit, no fluctuation of consciousness, he is logical, coherent, relevant and goal-directed. No loosening of associations , no delusions, no delirium, no agitation, no aggressive behavior, no ideas of reference, no paranoia could be elicited during this evaluation. PPHx: psychiatric history of bipolar disorder, anxiety, alcohol use disorder in sustained remission, he denies previous psychiatric hospitalizations, 2 previous suicide attempts by overdosing, he is in lithium 600 mg twice daily, Lexapro 20 mg, Xanax 2 mg 3 times daily, prescribed by outpatient provider in the [facility] PMHx: Diabetes, BPH, hypertension Substance Hx: Patient reports past use of alcohol, he has been sober for about 6 months Family Hx: Denies family psychiatric history Social Hx: Patient was born and raised in [place], he lives alone in [facility], poor family and social support, single, unemployed, on SSI process, his highest level of education is some college. Review of Systems All other systems reviewed negative except as stated in HPI Psychiatric: Reports depression, Reports hopelessness, Reports irritability, Reports thoughts of hurting/killing yourself [facility] - History History Provided By: Patient - Medical History Medical History: Medical History (Last Reviewed 12/29/17 @ 08:46 by Jevon Gutierrez) Surgical history unknown Depression Diabetes ETOH abuse Kidney stones - Family History Family History: Family History (Last Reviewed 12/29/17 @ 08:46 by Jevon Gutierrez) Other Family history unknown - Tobacco History Second Hand Smoke Exposure: No Smoking Status: Never smoker - Alcohol History How Often Do You Have a Drink Containing Alcohol: 2 to 3 times a week - Substance Use History Substance History: No History of Abuse - Travel History Recent Travel in the [place] Within the Last 8 Weeks: No Recent Travel Out of the Country Within the Last 8 Weeks: No - Immunization History Tetanus Immunization: Unable to Assess Medications and Allergies Active Medications: Active Medications Al Hydroxide/Mg Hydroxide (Milk Of Mallory Vu) 30 ml PO Q12H PRN PRN Reason: Mild Constipation Bisacodyl (Dulcolax Supp) 10 mg RECTAL DAILY PRN PRN Reason: SEVERE CONSITIPATION Escitalopram Oxalate (Lexapro) 20 mg PO DAILY [facility] Last Admin: 12/29/17 10:47 Dose: 20 mg Famotidine (Pepcid) 20 mg PO DAILY [facility] Last Admin: 12/29/17 10:51 Dose: 20 mg Finasteride (Proscar) 5 mg PO DAILY [facility] Last Admin: 12/29/17 10:51 Dose: 5 mg Ceftriaxone Sodium 1,000 mg/ (Sodium Chloride) 100 mls @ 200 mls/hr IV.SIG Q24H [facility] Lactulose (Lactulose Liq) 30 ml PO DAILY PRN PRN Reason: SEVERE CONSITIPATION [place] Carbonate (P[place]sbo Carbonate) 600 mg PO BID [facility] Ondansetron HCl (Zofran Inj) 4 mg IV.PUSH Q6H PRN PRN Reason: NAUSEA OR VOMITING Senna/Docusate Sodium (Gladys-Colace) 1 tab PO BID [facility] Last Admin: 12/29/17 10:50 Dose: 1 tab Sennosides (Senokot) 17.2 mg PO Q12H PRN PRN Reason: Moderate Constipation Sodium Chloride (Ns Flush) 2 ml IV.FLUSH BID [facility] Sodium Chloride (Ns Flush) 2 ml IV.FLUSH PRN PRN PRN Reason: FLUSH AFTER USING IV ACCESS Tamsulosin HCl (Flomax) 0.4 mg PO DAILY [facility] Last Admin: 12/29/17 10:50 Dose: 0.4 mg Allergies Allergy/AdvReac Type Severity Reaction Status Date / Time No Allergy Information Allergy Unverified 12/27/17 19:12 Available Home Medications Medication Instructions Recorded Confirmed Type escitalopram oxalate 20 mg PO DAILY 12/27/17 12/29/17 History famotidine 20 mg PO DAILY 12/27/17 12/29/17 History finasteride 5 mg PO DAILY 12/27/17 12/29/17 History quetiapine 400 mg PO BID 12/27/17 12/29/17 History sitagliptin [Januvia] 50 mg PO DAILY 12/27/17 12/29/17 History tamsulosin 0.4 mg PO DAILY 12/27/17 12/29/17 History lithium carbonate 600 mg PO BID 12/29/17 12/29/17 History Exam Vital signs: Vital Signs 12/29/17 00:40 12/29/17 00:47 12/29/17 07:28 Temperature 97.6 F 97.6 F 97.8 F Pulse Rate 101 H 98 H 87 Respiratory Rate 16 16 16 Blood Pressure 137/82 137/82 118/77 Pulse Oximetry 96 96 97 Intake & Output 12/28/17 12/29/17 12/29/17 18:59 06:59 18:59 Intake Total 1100 / 1100 Balance 1100 / 1100 Weight 83.915 kg Intake: IV 1100 / 1100 NS Inj 1,000 ML @ Wide Open IV. 1000 / 1000 SIG BOLUS ONE Rx#:[id number] Rocephin Inj 1,000 MG In NS Inj 100 / 100 100 ML @ 200 mls/hr IV.SIG ONCE ONE Rx#:[id number] Narrative: No psychomotor agitation or retardation, no tremors, no EPS, no stiffness, no gait disturbance, no catatonia - Constitutional no acute distress - Routine HEENT Exam Head: Present: normocephalic, atraumatic Eye: Present: PERRL ENT: Present: mucous membranes moist Mental Status Examination Appearance: Appropriate Consciousness: Alert Orientation: x4 Motor Activity: Normal gait Speech: Unremarkable Language: Adequate Fund of Knowledge: Adequate Attention and Concentration: Adequate Memory: Unremarkable Mood: Sad Affect: Irritable Thought Process & Associations: Intact Thought Content: Appropriate Hallucination Type: None Delusion Type: None Suicidal Ideation: Yes Suicidal Plan: No Suicidal Intention: No Homicidal Ideation: No Homicidal Plan: No Homicidal Intention: No Insight: Poor Judgment: Poor Assessment and Plan - Assessment (1) Bipolar depression Code(s): F31.30 - Bipolar disorder, current episode depressed, mild or moderate severity, unspecified Status: Acute - Plan Plan: On psychiatric evaluation on psychiatric evaluation today the patient reports symptoms of acute depression in the context of no compliant with medications, psychosocial and medical stressors. The patient reports that in the last 2 weeks he has been feeling hopeless, helpless, worthless, with increased suicidal ideation, but no plan. The patient reports that yesterday he was thinking to jump off a bridge "when the police found me and brought me to the hospital". The patient has a psychiatric history of bipolar disorder, anxiety, alcohol use disorder in remission, but no previous psychiatric hospitalizations , 2 previous suicide attempts. He has been treated with lithium 600 mg twice daily, Lexapro 20 mg twice daily, Xanax 2 mg 3 times daily. However he has not been fully compliant with his medications in the last 3 weeks. Apparently the patient was discharged from the sober house in [facility], he has been homeless since then. The patient does not have a previous encounter in [place]. The patient has an elevated risk of danger to self, he will be admitted in psychiatry for stabilization and safety. I will restart his lithium 600 mg twice daily and Lexapro 20 mg. No benzodiazepines until E force is consulted. There are several contradictions in patient psychiatric history, as well as suspicion for conscious simulation with secondary gain and exaggeration of psychiatric and medical symptoms, but more longitudinal observation is needed to rule out this possibility. Extensive support, motivational psychoeducation provided. Transfer to 2600. Patient will sign voluntary admission. Justification for Continued Inpatient Stay: Admission in 2600 unit. Sign voluntary.
[2017-12-29] MEDS ORDERED: Budesonide-Formoterol 160/4.5 MCG 6 GM Inhaler INH SCH (14:00)
[2017-12-29] MEDS ORDERED: Sodium Chloride 0.9% 2 ML Flush BID IV.FLUSH SCH (21:00)
== END 2017-12-29 16:03 ==
LOC: NEDA 00:26 → NEPC 00:26 → NEPHCDU 06:37
PROVIDERS: ADMIT Hospitalist; ATTEND Hospitalist

== ENCOUNTER 2017-12-29 13:10 | Inpatient (IN) ==
[2017-12-29] MEDS ORDERED: Bisacodyl 10 MG Supp RECTAL PRN (19:38)
[2017-12-29] MEDS ORDERED: Aluminum/Magnesium/Simethacone Susp 30 ML UDC PO PRN (19:38)
[2017-12-29] MEDS: Senna/Docusate Sodium 8.6/50 MG Tablet PO SCH (22:45)
[2017-12-30 08:10] LABS: Calcium 8.3 mg/dL (8.5-10.1); Carbon Dioxide 28.2 meq/L (21.0-32.0); Potassium 4.1 meq/L (3.5-5.1)
[2017-12-30 08:12] LABS: Chol/HDL Ratio 4.3 Ratio
[2017-12-30] MEDS: Famotidine 20 MG Tablet PO SCH (08:37)
[2017-12-30] MEDS: Senna/Docusate Sodium 8.6/50 MG Tablet PO SCH ×2 (08:41→22:31)
[2017-12-30] MEDS ORDERED: Dextrose 50% in Water 50 ML Vial IV.PUSH PRN (09:16)
[2017-12-30] MEDS ORDERED: Insulin NovoLOG Aspart Correctional Sugar Inj SQ SCH ×2 (09:31→12:00)
[2017-12-30] MEDS: Insulin NovoLOG Aspart Correctional Sugar Inj SQ SCH ×4 (09:50→21:55)
--- NOTE | 2017-12-30 11:11 | P.CON ---
History of Present Illness Service: [facility] Consult date: 12/30/17 Requesting Physician: Beltran Miguel Reason for Consult: Hx DM, uncontrolled blood sugars, EtOH abuse. Primary Care Provider: UNKNOWN Chief Complaint: "I am doing better" History of Present Illness: 52-year-old male with past medical history significant for diabetes mellitus, nephrolithiasis, depression, and alcohol abuse who presented to emergency department on 12/29 after being found under a bridge confused. Patient was admitted to observation unit. Head CT done negative, lithium levels subtherapeutic and ammonia levels within normal limit. Of note patient had previously been seen on 12/27 for similar symptoms and diagnosed with UTI however unsure if patient had been taking his medications appropriately. When admitted on 12/29 he was noted to have urinary retention for which Medrano catheter was placed and Flomax as well as Proscar restarted. Apparently patient had been out of both of these medications at home. Medrano catheter was eventually discontinued and patient was able to void spontaneously. His Keflex was resumed with pending cultures. He was admitted to inpatient psychiatry as patient voiced suicidal ideation. [facility] consulted now to assist with ongoing medical management. Patient is seen and examined in his room and appears to be in no acute distress. He denies any fevers, chills, nausea, vomiting, diarrhea, cough, shortness of breath, chest pain or dysuria. Patient reports that he previously had ongoing diarrhea for months however since he has been in the hospital and has quit drinking Crystal light has noticed that he has not had any more episodes of diarrhea. Patient also reports that he takes 28 units of Levemir at bedtime. He voices no other acute concerns or complaints at the moment. [facility] - History History Provided By: Patient - Medical History Medical History: Medical History (Last Reviewed 12/29/17 @ 08:46 by Jevon Gutierrez) Depression Diabetes ETOH abuse Kidney stones Surgical history unknown - Family History Family History: Family History (Last Reviewed 12/29/17 @ 08:46 by Jevon Gutierrez) Other Family history unknown - Tobacco History Second Hand Smoke Exposure: No Tobacco Use In Past 30 Days: No Smoking Status: Never smoker - Alcohol History How Often Do You Have a Drink Containing Alcohol: Never - Substance Use History Substance History: No History of Abuse - Substance Use Type Alcohol Status: Active Route Used: By Mouth Reason for Use: Calm Down, Feels Good Comment: Patient reports a struggle with alcohol use. Patient is open to recovery program. Medications and Allergies Active Medications: Active Medications Al Hydrox/Mg Hydrox/Simethicone (Mag-Al Plus Susp Liq) 30 ml PO Q6H PRN PRN Reason: DYSPEPSIA Al Hydroxide/Mg Hydroxide (Milk Of Magnesia Liq) 30 ml PO Q12H PRN PRN Reason: Mild Constipation Bisacodyl (Dulcolax Supp) 10 mg RECTAL DAILY PRN PRN Reason: SEVERE CONSITIPATION Cephalexin Monohydrate (Keflex) 500 mg PO Q12H [facility] Last Admin: 12/30/17 08:37 Dose: 500 mg Dextrose (D50w Vial) 50 ml IV.PUSH UNSCH PRN PRN Reason: PER HYPOGLYCEMIA PROTOCOL Escitalopram Oxalate (Lexapro) 20 mg PO DAILY [facility] Last Admin: 12/30/17 08:41 Dose: Not Given Famotidine (Pepcid) 20 mg PO DAILY [facility] Last Admin: 12/30/17 08:37 Dose: 20 mg Glucagon (Glucagon Inj) 1 mg OTHER UNSCH PRN PRN Reason: for Hypoglycemia Protocol Insulin Aspart (Novolog Insulin Correctional Sugar Inj) 0 unit SQ ACHS [facility]; Protocol Last Admin: 12/30/17 09:50 Dose: 9 unit Lactulose (Lactulose Liq) 30 ml PO DAILY PRN PRN Reason: SEVERE CONSITIPATION Victor Carbonate (Victor Carbonate) 600 mg PO BID [facility] Last Admin: 12/30/17 08:41 Dose: Not Given Senna/Docusate Sodium (Gladys-Colace) 1 tab PO BID [facility] Last Admin: 12/30/17 08:41 Dose: Not Given Sennosides (Senokot) 17.2 mg PO Q12H PRN PRN Reason: Moderate Constipation Sitagliptin Phosphate (Januvia) 50 mg PO DAILY [facility] Last Admin: 12/30/17 08:37 Dose: Not Given Tamsulosin HCl (Flomax) 0.4 mg PO DAILY [facility] Last Admin: 12/30/17 08:37 Dose: 0.4 mg Allergies Allergy/AdvReac Type Severity Reaction Status Date / Time No Known Allergies Allergy Verified 12/29/17 18:29 Home Medications Medication Instructions Recorded Confirmed Type escitalopram oxalate 20 mg PO DAILY 12/27/17 12/29/17 History famotidine 20 mg PO DAILY 12/27/17 12/29/17 History finasteride 5 mg PO DAILY 12/27/17 12/29/17 History quetiapine 400 mg PO BID 12/27/17 12/29/17 History sitagliptin [Januvia] 50 mg PO DAILY 12/27/17 12/29/17 History tamsulosin 0.4 mg PO DAILY 12/27/17 12/29/17 History lithium carbonate 600 mg PO BID 12/29/17 12/29/17 History Physical Exam Vital signs: Vital Signs 12/29/17 18:00 12/30/17 06:25 Temperature 97.6 F 97.1 F L Pulse Rate 99 H 107 H Respiratory Rate 18 18 Blood Pressure 117/74 116/78 Pulse Oximetry 96 96 Intake & Output 12/29/17 12/30/17 12/30/17 18:59 06:59 18:59 Weight 98 kg Other: Weight On Admission 98 kg Narrative: GENERAL: Well-nourished, well-developed male in no acute distress. SKIN: Warm and dry. HEAD: Atraumatic. Normocephalic. EYES: Pupils equal and round. No scleral icterus. No injection or drainage. ENT: No nasal bleeding or discharge. Mucous membranes pink and moist. NECK: Trachea midline. No JVD. CARDIOVASCULAR: Regular rate and rhythm. RESPIRATORY: No accessory muscle use. Clear to auscultation. Breath sounds equal bilaterally. GASTROINTESTINAL: Abdomen soft, non-tender, nondistended. + Sounds. MUSCULOSKELETAL: Extremities without clubbing, cyanosis, or edema. No obvious deformities. NEUROLOGICAL: Awake and alert. No obvious cranial nerve deficits. Motor grossly within normal limits. Five out of 5 muscle strength in the arms and legs. Normal speech. PSYCHIATRIC: Appropriate mood and affect; insight and judgment normal. Assessment and Plan - Plan 52-year-old male with past medical history significant for diabetes mellitus, nephrolithiasis, depression, and alcohol abuse who presented to emergency department on 12/29 after being [place] bridge confused. Patient previously admitted on 12/27 due to similar symptoms. Restarted back on antibiotic for UTI, mental status improved. Patient with suicidal ideation, psychiatry consulted during observation unit stay, agreeable to voluntary admission to psychiatric unit. [facility] consulted now to assist with ongoing medical management. Suicidal ideation Depression AMS, resolved -Treatment plan per psychiatry, greatly appreciated. Diabetes mellitus, chronic -Diabetic diet -Continue oral diabetic meds, Accu-Cheks with sliding scale, resume Levemir 28 units at bedtime -Monitor for hypoglycemia, snack at bedtime UTI, acute, resolved Urinary retention, resolved -Continue patient's Flomax and finasteride -UA with no growth after 24 hours, patient asymptomatic -Discontinue Keflex, monitor for signs and symptoms DVT prophylaxisambulation Thank you Dr. Miguel for this consultation. We will continue to follow along Discussed Condition With: Patient and RN.
--- NOTE | 2017-12-30 13:39 | P.HPPSY ---
Provisional Diagnosis Admission Date: December 29, 2017 16:16 Lynn I.: Bipolar depression Competence Certification of Person's Competence To Provide Express and Informed Consent I have personally examined Juan Jose Mancini, a person being served at [facility] on, December 30, 2017 2177. Express and informed consent means consent voluntarily given in writing, by a competent person, after sufficient explanation and disclosure of the subject matter involved to enable the person to make a knowing and willful decision without any element of force, fraud, deceit, duress, or other form of constraint or coercion. This person is 18 years of age or older, is not now known to be incompetent to consent to treatment with a guardian advocate, and does not have a health care surrogate or proxy currently making medical treatment decisions. I have found this person to be one of the following: [x] Competent to provide express and informed consent, as defined above, for voluntary admission to this facility and is competent to provide express and informed consent for treatment. He/she has the consistent capacity to make well reasoned, willful, and knowing decisions concerning his or her medical or mental health treatment. The person fully and consistently understands the purpose of the admission for examination/placement and is fully capable of personally exercising all rights assured under [place] [] Incompetent to provide express and informed consent to voluntary admission, and this is incompetent to provide express and informed consent to treatment. The person must be transferred to involuntary status and a petition for a guardian advocate filed with the Circuit Court. [] Refusing to provide express and informed consent to voluntary admission but is competent to provide express and informed consent for treatment. The person must be discharged or transferred to involuntary status. Form shall be completed within 24 hours of a person's arrival at the receiving facility and filed in the clinical record of each person: 1. Admitted on a voluntary basis 2. Permitted to provide express and informed consent to his/her own treatment 3. Allowed to transfer from involuntary to voluntary status 4. Prior to permitting a person to consent to his or her own treatment after having been previously found incompetent to consent to treatment. History of Present Illness Capacity: Has capacity History of Present Illness: The patient is a 52-year-old man, domiciled in [place], single, unemployed, on [employer] process, with a self-reported psychiatric history of bipolar disorder, anxiety, alcohol use disorder in sustained remission, he denies previous psychiatric hospitalizations, 2 previous suicide attempts by overdosing , he is in lithium 600 mg twice daily, Lexapro 20 mg, Xanax 2 mg 3 times daily, prescribed by outpatient provider in the [place] area, with past medical history significant diabetes mellitus and alcohol abuse presents to the emergency department for evaluation of altered mental status. The patient was found sitting on a bridge confused and bystanders called EMS. He was admitted to [facility] on 12/27 for similar symptoms, was diagnosed with a UTI, discharged with antibiotics after his mentation returned to normal. Patient was admitted due to altered mental status/encephalopathy: Unclear etiology, suspect secondary to UTI versus misuse of medications. Toxicology screen negative, lithium level subtherapeutic 0.4, alcohol level less than 3, ammonia within normal limits. Head CT negative on 12/27/17. Consulted to psychiatry to address potential psychosis versus delirium. On psychiatric evaluation today I find a patient that is calm, cooperative, stating that he feels much better. However, he says that he has been increasingly depressed in the last months, to the point that yesterday he was thinking to commit suicide. He says that he has been contemplated to overdose because his life is going down the heel lately. He says that he just finished a rehabilitation program in the [facility], he was living in a sober house, but he left last week and he has been homeless. He says that he is to be a reach person, business, his house, a lot of friends " but due to my alcoholism and bipolar decompensation I lost everything". When I asked him about symptomatology of bipolar disorder he expresses that he has been very depressed in the past, he has tried to commit suicide, but he denies that he has been hospitalized. He says that the lesion has been very helpful, but in the last weeks he has not been compliant due to lack of resources. He says that he was also responsive to Lexapro 20 mg, but the same he has not taken this medication in the last 3 weeks. The patient reports that he has been putting a sleeping, with appetite, and weight loss. He also reports acute anxiety given the fact that he is not taking his Xanax. He reports hopelessness , helplessness, worthlessness, and persistent suicidal ideation. The patient is fully oriented x3, no attention deficit, no fluctuation of consciousness, he is logical, coherent, relevant and goal-directed. No loosening of associations , no delusions, no delirium, no agitation, no aggressive behavior, no ideas of reference, no paranoia could be elicited during this evaluation. PPHx: psychiatric history of bipolar disorder, anxiety, alcohol use disorder in sustained remission, he denies previous psychiatric hospitalizations, 2 previous suicide attempts by overdosing, he is in lithium 600 mg twice daily, Lexapro 20 mg, Xanax 2 mg 3 times daily, prescribed by outpatient provider in the [facility] PMHx: Diabetes, BPH, hypertension Substance Hx: Patient reports past use of alcohol, he has been sober for about 6 months Family Hx: Denies family psychiatric history Social Hx: Patient was born and raised in [place], he lives alone in [facility], poor family and social support, single, unemployed, on SSI process, his highest level of education is some college. - Inpatient Certification I certify that the inpatient services were ordered in accordance with Medicare regulations governing the order. This includes certification that hospital inpatient services are reasonable and necessary and in the case of services not specified as inpatient-only under 42 CFR 419.22(n), that they are appropriately provided as inpatient services in accordance to with the 2-midnight benchmark under 43 CFR 412.3(e) I certify that inpatient psychiatric hospital services are medically necessary. Evaluation and treatment and/or diagnostic testing are expected to improve the patient's condition. The patient needs on a daily basis, active treatment furnished directly by or requiring the supervision of inpatient psychiatric facility personnel. Estimated Total Length of Stay (Days): 7 Plans for Post Hospital Care: Home [facility] - History History Provided By: Patient - Medical History Medical History: Medical History (Last Reviewed 12/29/17 @ 08:46 by Jevon Gutierrez) Depression Diabetes ETOH abuse Kidney stones Surgical history unknown - Family History Family History: Family History (Last Reviewed 12/29/17 @ 08:46 by Jevon Gutierrez) Other Family history unknown - Tobacco History Second Hand Smoke Exposure: No Tobacco Use In Past 30 Days: No Smoking Status: Never smoker - Alcohol History How Often Do You Have a Drink Containing Alcohol: Never - Substance Use History Substance History: No History of Abuse Medications and Allergies Active Medications: Active Medications Al Hydrox/Mg Hydrox/Simethicone (Mag-Al Plus Susp Liq) 30 ml PO Q6H PRN PRN Reason: DYSPEPSIA Al Hydroxide/Mg Hydroxide (Milk Of Magnesia Liq) 30 ml PO Q12H PRN PRN Reason: Mild Constipation Bisacodyl (Dulcolax Supp) 10 mg RECTAL DAILY PRN PRN Reason: SEVERE CONSITIPATION Cephalexin Monohydrate (Keflex) 500 mg PO Q12H [facility] Last Admin: 12/30/17 08:37 Dose: 500 mg Dextrose (D50w Vial) 50 ml IV.PUSH UNSCH PRN PRN Reason: PER HYPOGLYCEMIA PROTOCOL Escitalopram Oxalate (Lexapro) 20 mg PO DAILY [facility] Last Admin: 12/30/17 08:41 Dose: Not Given Famotidine (Pepcid) 20 mg PO DAILY [facility] Last Admin: 12/30/17 08:37 Dose: 20 mg Glucagon (Glucagon Inj) 1 mg OTHER UNSCH PRN PRN Reason: for Hypoglycemia Protocol Insulin Aspart (Novolog Insulin Correctional Sugar Inj) 0 unit SQ [facility]; Protocol Last Admin: 12/30/17 11:53 Dose: 5 unit Insulin Detemir (Levemir Inj) 28 unit SQ [facility] Lactulose (Lactulose Liq) 30 ml PO DAILY PRN PRN Reason: SEVERE CONSITIPATION Oden Carbonate (Oden Carbonate) 600 mg PO BID [facility] Last Admin: 12/30/17 08:41 Dose: Not Given Senna/Docusate Sodium (Gladys-Colace) 1 tab PO BID [facility] Last Admin: 12/30/17 08:41 Dose: Not Given Sennosides (Senokot) 17.2 mg PO Q12H PRN PRN Reason: Moderate Constipation Sitagliptin Phosphate (Januvia) 50 mg PO DAILY [facility] Last Admin: 12/30/17 08:37 Dose: Not Given Tamsulosin HCl (Flomax) 0.4 mg PO DAILY [facility] Last Admin: 12/30/17 08:37 Dose: 0.4 mg Allergies Allergy/AdvReac Type Severity Reaction Status Date / Time No Known Allergies Allergy Verified 12/29/17 18:29 Home Medications Medication Instructions Recorded Confirmed Type escitalopram oxalate 20 mg PO DAILY 12/27/17 12/29/17 History famotidine 20 mg PO DAILY 12/27/17 12/29/17 History finasteride 5 mg PO DAILY 12/27/17 12/29/17 History quetiapine 400 mg PO BID 12/27/17 12/29/17 History sitagliptin [Januvia] 50 mg PO DAILY 12/27/17 12/29/17 History tamsulosin 0.4 mg PO DAILY 12/27/17 12/29/17 History lithium carbonate 600 mg PO BID 12/29/17 12/29/17 History Results - Labs CBC & Chem 7: 12/30/17 06:35 Labs: Laboratory Results - last 24 hr 12/30/17 12/30/17 12/30/17 06:35 09:12 11:28 Sodium 138 Potassium 4.1 Chloride 103 Carbon Dioxide 28.2 Anion Gap 7 BUN 10 Creatinine 1.10 Estimated GFR 71 L POC Glucose 433 H 274 H Random Glucose 383 H D Calcium 8.3 L Triglycerides 177 H Cholesterol 112 L LDL Cholesterol, Calc 51 HDL Cholesterol 26.0 L Cholesterol/HDL Ratio 4.30 Exam Vital signs: Vital Signs 12/29/17 18:00 12/30/17 06:25 Temperature 97.6 F 97.1 F L Pulse Rate 99 H 107 H Respiratory Rate 18 18 Blood Pressure 117/74 116/78 Pulse Oximetry 96 96 Intake & Output 12/29/17 12/30/17 12/30/17 18:59 06:59 18:59 Weight 98 kg Other: Date of Last Bowel Movement 12/29/17 Weight On Admission 98 kg Mental Status Examination Appearance: Appropriate Consciousness: Alert Orientation: x4 Motor Activity: Normal gait Speech: Unremarkable Language: Adequate Fund of Knowledge: Adequate Attention and Concentration: Adequate Memory: Unremarkable Mood: Sad Affect: Irritable Thought Process & Associations: Intact Thought Content: Appropriate Hallucination Type: None Delusion Type: None Suicidal Ideation: Yes Suicidal Plan: No Suicidal Intention: No Homicidal Ideation: No Homicidal Plan: No Homicidal Intention: No Insight: Poor Judgment: Poor Assessment and Plan - Assessment (1) Bipolar depression Code(s): F31.30 - Bipolar disorder, current episode depressed, mild or moderate severity, unspecified Status: Acute - Plan Plan: Estimated LOS: [] days On psychiatric evaluation on psychiatric evaluation today the patient reports symptoms of acute depression in the context of no compliant with medications, psychosocial and medical stressors. The patient reports that in the last 2 weeks he has been feeling hopeless, helpless, worthless, with increased suicidal ideation, but no plan. The patient reports that yesterday he was thinking to jump off a bridge "when the police found me and brought me to the hospital". The patient has a psychiatric history of bipolar disorder, anxiety, alcohol use disorder in remission, but no previous psychiatric hospitalizations , 2 previous suicide attempts. He has been treated with lithium 600 mg twice daily, Lexapro 20 mg twice daily, Xanax 2 mg 3 times daily. However he has not been fully compliant with his medications in the last 3 weeks. Apparently the patient was discharged from the sober house in [facility], he has been homeless since then. The patient does not have a previous encounter in [place]. The patient has an elevated risk of danger to self, he will be admitted in psychiatry for stabilization and safety. I will restart his lithium 600 mg twice daily and Lexapro 20 mg. No benzodiazepines until E force is consulted. There are several contradictions in patient psychiatric history, as well as suspicion for conscious simulation with secondary gain and exaggeration of psychiatric and medical symptoms, but more longitudinal observation is needed to rule out this possibility. Extensive support, motivational psychoeducation provided. Transfer to 2600. Patient will sign voluntary admission. Justification for Continued Inpatient Stay: To be admitted
[2017-12-30 17:17] LABS: Hemoglobin A1c 7.1 % (4.3-6.0)
[2017-12-30] MEDS: Insulin Detemir Inj 1,000 UNIT/10 ML Vial SQ SCH (21:54)
--- NOTE | 2017-12-30 22:53 | P.PNPSY ---
Subjective Remarks: Patient seen for follow-up, chart reviewed. Discussion with nursing staff reported that patient mostly isolative in bed and now pulled for meals. Patient was found lying hospital bed noted B, cooperative. Patient states feeling tired and depressed reported sleeping well last evening, has not been attending groups, denying any auditory hallucinations recalls people calling his name recently. Patient continues to endorse suicidal ideations, continued be vague about fernie for safety while here in the unit. Patient states he has not been taking his medication for the past 2 weeks as he had run out. Patient reports having previously and solutions by to see which is a sober living facility and was stated that they can no longer help manage his medications and he did care that they could not provide. He states having left the facility 2 days ago and has been homeless for 1 day and decided to bring himself to the ED. Review of Systems All other systems reviewed negative except as stated in HPI Mental Status Examination Appearance: Appropriate Consciousness: Alert Orientation: x4 Motor Activity: Normal gait Speech: Unremarkable Language: Adequate Fund of Knowledge: Adequate Attention and Concentration: Adequate Memory: Unremarkable Mood: Sad Affect: Irritable Thought Process & Associations: Intact Thought Content: Appropriate Hallucination Type: None Delusion Type: None Suicidal Ideation: Yes Suicidal Plan: No Suicidal Intention: No Homicidal Ideation: No Homicidal Plan: No Homicidal Intention: No Insight: Poor Judgment: Poor Assessment and Plan - Assessment (1) Bipolar depression Code(s): F31.30 - Bipolar disorder, current episode depressed, mild or moderate severity, unspecified Status: Acute - Plan Plan: Patient this time continues to report feeling depressed along with suicide ideations, has been mostly isolative in his room with poor motivation at this time. We will continue current treatment. We will continue to monitor mood and behavior. We will order a urine toxicology screen. Discharge planning in progress. Justification for Continued Inpatient Stay: At risk of further decompensation at lower level care.
[2017-12-31] MEDS: Insulin NovoLOG Aspart Correctional Sugar Inj SQ SCH ×4 (07:44→21:30)
[2017-12-31] MEDS: Famotidine 20 MG Tablet PO SCH (09:16)
[2017-12-31] MEDS: Senna/Docusate Sodium 8.6/50 MG Tablet PO SCH ×2 (09:17→21:00)
--- NOTE | 2017-12-31 14:51 | P.PN ---
Subjective Interval history: Follow-up visit for DM. Patient is seen and examined in his room. He denies any fevers, chills, N/V/D, dysuria, SOB or cough. He is requesting to be restarted on his propranolol. States that he takes this for tremors. He is also requesting more food with meals, no other acute concern. Physical Exam Vital signs: Vital Signs 12/30/17 18:36 12/31/17 06:20 Temperature 98.1 F 98.4 F Pulse Rate 88 69 Respiratory Rate 20 16 Blood Pressure 117/68 128/70 Pulse Oximetry 96 98 Intake & Output 12/30/17 12/31/17 12/31/17 18:59 06:59 18:59 Weight 87.6 kg Other: Date of Last Bowel Movement 12/29/17 12/30/17 Narrative: GENERAL: Well-nourished, well-developed male in no acute distress. SKIN: Warm and dry. HEAD: Atraumatic. Normocephalic. EYES: Pupils equal and round. No scleral icterus. No injection or drainage. ENT: No nasal bleeding or discharge. Mucous membranes pink and moist. NECK: Trachea midline. CARDIOVASCULAR: Regular rate and rhythm. RESPIRATORY: No accessory muscle use. Clear to auscultation. Breath sounds equal bilaterally. GASTROINTESTINAL: Abdomen soft, non-tender, nondistended. + Sounds. MUSCULOSKELETAL: Extremities without clubbing, cyanosis, or edema. No obvious deformities. NEUROLOGICAL: Awake and alert. No obvious cranial nerve deficits. Motor grossly within normal limits. Normal speech. PSYCHIATRIC: Appropriate mood and affect; insight and judgment normal. Results - Labs CBC & Chem 7: 12/30/17 06:35 Laboratory Results - last 24 hr 12/30/17 12/30/17 12/30/17 06:35 16:29 20:39 POC Glucose 191 H 368 H Hemoglobin A1c 7.1 H 12/31/17 12/31/17 12/31/17 03:22 06:51 11:22 POC Glucose 207 H 128 H 209 H Hemoglobin A1c Assessment and Plan - Plan 52-year-old male with past medical history significant for diabetes mellitus, nephrolithiasis, depression, and alcohol abuse who presented to emergency department on 12/29 after being found under a bridge confused. Patient previously admitted on 12/27 due to similar symptoms. Restarted back on antibiotic for UTI, mental status improved. Patient with suicidal ideation, psychiatry consulted during observation unit stay, agreeable to voluntary admission to psychiatric unit. [facility] consulted now to assist with ongoing medical management. Suicidal ideation Depression AMS, resolved -Treatment plan per psychiatry, greatly appreciated. Diabetes mellitus, chronic -Diabetic diet, double protein portions, increase diet to . -Continue oral diabetic meds, Accu-Cheks with sliding scale, and Levemir 28 units at bedtime -BS improved UTI, acute, resolved Urinary retention, resolved -Continue patient's Flomax and finasteride -UA with no growth after 24 hours, patient asymptomatic - Keflex DCed, still asymptomatic Chronic tremor -Restart Propranolol DVT prophylaxisambulation [facility] will sign off, please reconsult if needed. Discussed Condition With: Patient and RN
--- NOTE | 2017-12-31 20:54 | P.PNPSY ---
Subjective Remarks: Patient seen for follow up; chart reviewed. Discussion with nursing staff reported that patient refused lithium last night. Patient was seen ambulating noted to be calm and cooperative. Patient states sleeping well, mood being "down ", continues with SI, worried about his belongings that were left at prior sober living facility. He states wanting to attend sober living facility upon discharge. Review of Systems All other systems reviewed negative except as stated in HPI Mental Status Examination Appearance: Appropriate Consciousness: Alert Orientation: x4 Motor Activity: Normal gait Speech: Unremarkable Language: Adequate Fund of Knowledge: Adequate Attention and Concentration: Adequate Memory: Unremarkable Mood: Sad Affect: Sad Thought Process & Associations: Intact Thought Content: Appropriate Hallucination Type: None Delusion Type: None Suicidal Ideation: Yes Suicidal Plan: No Suicidal Intention: No Homicidal Ideation: No Homicidal Plan: No Homicidal Intention: No Insight: Fair Judgment: Impulsive Assessment and Plan - Assessment (1) Bipolar depression Code(s): F31.30 - Bipolar disorder, current episode depressed, mild or moderate severity, unspecified Status: Acute - Plan Plan: Patient currently with depressed mood, has refused lithium last night and was advised to comply with treatment. Will add diphenhydramine 50mg PO HS for sleep disturbance. Continue rest of medications, hospitalist input appreciated. Continue to monitor mood and behavior. Discharge planning in progress. Justification for Continued Inpatient Stay: At risk for further decompensation at lower level of care.
[2017-12-31] MEDS: Propranolol 10 MG Tablet PO SCH (21:25)
[2017-12-31] MEDS: Insulin Detemir Inj 1,000 UNIT/10 ML Vial SQ SCH (21:32)
[2018-01-01] MEDS: Insulin NovoLOG Aspart Correctional Sugar Inj SQ SCH ×4 (09:31→21:13)
[2018-01-01] MEDS: Senna/Docusate Sodium 8.6/50 MG Tablet PO SCH ×2 (09:33→21:15)
[2018-01-01] MEDS: Famotidine 20 MG Tablet PO SCH (09:33)
[2018-01-01] MEDS: Propranolol 10 MG Tablet PO SCH ×2 (09:33→21:15)
--- NOTE | 2018-01-01 14:06 | P.PN ---
Subjective Interval history: Follow-up visit for DM. Patient is seen and examined in the day room. Nursing reports patent had BS overnight in the 40's. Patient reports that he will drop his BS at home also in the 40's. He denies any symptoms during episode overnight however nursing staff noted patient to be diaphoretic. Denies any fevers, chills, nausea, vomiting or diarrhea. No acute concerns or complaints reported today. Physical Exam Vital signs: Vital Signs 01/01/18 05:52 Temperature 98.1 F Respiratory Rate 16 Blood Pressure 121/74 Intake & Output 12/31/17 01/01/18 01/01/18 18:59 06:59 18:59 Other: Date of Last Bowel Movement 12/30/17 Narrative: GENERAL: Well-nourished, well-developed male in no acute distress. SKIN: Warm and dry. HEAD: Atraumatic. Normocephalic. CARDIOVASCULAR: Regular rate and rhythm. RESPIRATORY: No accessory muscle use. Clear to auscultation. Breath sounds equal bilaterally. GASTROINTESTINAL: Abdomen soft, non-tender, nondistended. + Sounds. MUSCULOSKELETAL: Extremities without clubbing, cyanosis, or edema. No obvious deformities. NEUROLOGICAL: Awake and alert. No obvious cranial nerve deficits. Motor grossly within normal limits. Normal speech. PSYCHIATRIC: Appropriate mood and affect; insight and judgment normal. Results - Labs CBC & Chem 7: 12/30/17 06:35 Laboratory Results - last 24 hr 12/31/17 12/31/17 12/31/17 16:27 20:12 23:48 POC Glucose 300 H 235 H 43 L* 01/01/18 01/01/18 01/01/18 00:16 06:20 11:35 POC Glucose 84 157 H 307 H Assessment and Plan - Plan 52-year-old male with past medical history significant for diabetes mellitus, nephrolithiasis, depression, and alcohol abuse who presented to emergency department on 12/29 after being found under a bridge confused. Patient previously admitted on 12/27 due to similar symptoms. Restarted back on antibiotic for UTI, mental status improved. Patient with suicidal ideation, psychiatry consulted during observation unit stay, agreeable to voluntary admission to psychiatric unit. [facility] consulted now to assist with ongoing medical management. Suicidal ideation Depression AMS, resolved -Treatment plan per psychiatry, greatly appreciated. Diabetes mellitus, chronic Hypoglycemic episode overnight -Continue 2000-calorie diabetic diet and double protein portions. -Hypoglycemic event overnight with blood sugars in the 40s -Discussed with patient decreasing Levemir to 20 units at bedtime -Monitor blood sugars and adjust medications accordingly UTI, acute, resolved Urinary retention, resolved -Continue patient's Flomax and finasteride -UA with no growth after 24 hours, patient asymptomatic - Keflex DCed, still asymptomatic Chronic tremor -Restart Propranolol DVT prophylaxisambulation Discussed Condition With: Discussed with patient and RN
--- NOTE | 2018-01-01 14:46 | P.PNPSY ---
Subjective Remarks: Patient seen for follow-up, chart reviewed. Discussion with nursing staff reported that patient denying suicide ideations though to be somewhat anxious. Patient was found lying hospital bed noted B, cooperative. Patient state he is feeling "a little down" stating he slept but not bad and that his mood has been "blah". Patient continues denied suicidal ideation last time being last night which lasted about 20 minutes. But denies today. Patient reports eating and drinking well stating that he is not getting enough food. Patient denies any perceptional disturbances or delusions. Review of Systems All other systems reviewed negative except as stated in HPI Mental Status Examination Appearance: Appropriate Consciousness: Alert Orientation: x4 Motor Activity: Normal gait Speech: Unremarkable Language: Adequate Fund of Knowledge: Adequate Attention and Concentration: Adequate Memory: Unremarkable Mood: Sad Affect: Sad Thought Process & Associations: Intact Thought Content: Appropriate Hallucination Type: None Delusion Type: None Suicidal Ideation: Yes Suicidal Plan: No Suicidal Intention: No Homicidal Ideation: No Homicidal Plan: No Homicidal Intention: No Insight: Fair Judgment: Impulsive Assessment and Plan - Assessment (1) Bipolar depression Code(s): F31.30 - Bipolar disorder, current episode depressed, mild or moderate severity, unspecified Status: Acute - Plan Plan: Patient this time continues with intermittent suicide ideation continues report feeling depressed but states that it is improving. We will continue current treatment we will order lithium level scheduled for a 01/04/18. Dietitian consult pending. Continue to monitor mood and behavior. Discharge planning in progress. Justification for Continued Inpatient Stay: At risk of further decompensation at lower level care.
--- NOTE | 2018-01-01 14:53 | P.DIET ---
Nutritional Evaluation Type of nutrition evaluation: initial Nutrition screening: [facility] [place] 12[place]30/17 [facility] [place] Education Subjective Subjective Comments: Pt visited in the dayroom of the Unit after lunch today. Pt displays a baseline knowledge of CHO counting. Pt reports that he is upset w/his food and he is not receiving the foods he orders and is not getting enough food. Pt provided w/ diet education for Consistent CHO during this visit. Objective - Diagnosis Brief Psychosis DO - Objective [place] body weight: 86.4 kg % IBW: 113 Body Weight Used for Calculations: Actual (98kg) Energy Needs - Lower Range (kCal/kg): 22 Energy Needs - Upper Range (kCal/kg): 27 Lower Limit kCal/kg (kCals): 2,156 Upper Limit kCal/kg (kCals): 2,646 Lower Limit Protein Factor (Grams per Kg): 1.0 Upper Limit Protein Factor (Grams per Kg): 1.3 Lower Protein Needs (Protein): 98 Upper Protein Needs (Protein): 127 Dietitian Reviewed in Medical Record: Current diet, Curent medications, Intake & Output, Labs, Medical history Diet Order: [id number] Objective Comments: PMH includes: Depression, DM, ETOH Abuse, Kidney Stones A1C 7.1% POC Glucose 307 Assessment Assessment: [facility] [place]. Pt provided w/diet education for Consistent CHO diet. Pt has no questions regarding the diet education. Pt is focused on receiving more food and getting the food he has ordered. Encouraged pt to make daily menu selections-discussed w/RN Ailyn. Double portions per MD and a bedtime snack have been ordered. Send Glucerna Shakes w/meals(= 220 kcals and 10g protein per serving). Dietitian will follow-up for additional questions as needed. Recommendations: 1. Pt provided w/diet education for Consistent CHO diet 2. Pt focused on receiving more food and getting the food he has ordered 3. Encouraged pt to make daily menu selections 4. Double portions per MD and a bedtime snack have been ordered 5. Send Glucerna Shakes w/meals 6. Dietitian will follow-up for additional questions as needed
[2018-01-01 19:44] LABS: Amphetamine Screen,Urine Neg (Neg); Barbiturate Screen,Urine Neg (Neg); Cannabinoid Screen,Urine Neg (Neg); Cocaine Screen,Urine Neg (Neg)
[2018-01-01 19:48] LABS: Opiate Screen,Urine Neg (Neg)
[2018-01-01] MEDS ORDERED: Insulin Detemir Inj 1,000 UNIT/10 ML Vial SQ SCH (21:00)
[2018-01-02] MEDS: Insulin NovoLOG Aspart Correctional Sugar Inj SQ SCH ×4 (08:24→22:07)
[2018-01-02] MEDS: Propranolol 10 MG Tablet PO SCH ×2 (09:23→21:52)
[2018-01-02] MEDS: Famotidine 20 MG Tablet PO SCH (09:23)
[2018-01-02] MEDS: Senna/Docusate Sodium 8.6/50 MG Tablet PO SCH ×2 (09:23→21:51)
--- NOTE | 2018-01-02 13:29 | P.PN ---
Subjective Interval history: Follow-up visit for DM. Patient is seen in the day room in no acute distress. Nurse does not report any acute events. Patient still complaints of not getting enough food. No other concerns at this moment. Physical Exam Vital signs: Vital Signs 01/01/18 18:44 01/02/18 06:55 Temperature 98.3 F 97.2 F L Pulse Rate 75 73 Respiratory Rate 16 16 Blood Pressure 116/70 119/60 Pulse Oximetry 97 97 Intake & Output 01/01/18 01/02/18 01/02/18 18:59 06:59 18:59 Other: Date of Last Bowel Movement 12/30/17 Narrative: GENERAL: Well-nourished, well-developed male in no acute distress. SKIN: Warm and dry. HEAD: Atraumatic. Normocephalic. CARDIOVASCULAR: Regular rate and rhythm. RESPIRATORY: No accessory muscle use. Clear to auscultation. Breath sounds equal bilaterally. GASTROINTESTINAL: Abdomen soft, non-tender, nondistended. + Sounds. MUSCULOSKELETAL: Extremities without clubbing, cyanosis, or edema. No obvious deformities. NEUROLOGICAL: Awake and alert. No obvious cranial nerve deficits. Motor grossly within normal limits. Normal speech. PSYCHIATRIC: Appropriate mood and affect; insight and judgment normal. Results - Labs CBC & Chem 7: 12/30/17 06:35 Laboratory Results - last 24 hr 01/01/18 01/01/18 01/01/18 16:17 18:30 20:39 POC Glucose 399 H 366 H Urine Opiates Screen Neg Ur Barbiturates Screen Neg Ur Amphetamines Screen Neg U Benzodiazepines Scrn Neg Urine Cocaine Screen Neg U Cannabinoids Screen Neg 01/02/18 01/02/18 06:33 11:18 POC Glucose 191 H 270 H Urine Opiates Screen Ur Barbiturates Screen Ur Amphetamines Screen U Benzodiazepines Scrn Urine Cocaine Screen U Cannabinoids Screen Assessment and Plan - Plan 52-year-old male with past medical history significant for diabetes mellitus, nephrolithiasis, depression, and alcohol abuse who presented to emergency department on 12/29 [place] being [place] bridge confused. Patient previously admitted on 12/27 due to similar symptoms. Restarted back on antibiotic for UTI, mental status improved. Patient with suicidal ideation, psychiatry consulted during observation unit stay, agreeable to voluntary admission to psychiatric unit. [facility] consulted now to assist with ongoing medical management. Suicidal ideation Depression AMS, resolved -Treatment plan per psychiatry, greatly appreciated. Diabetes mellitus, chronic - BS this a.m, in high 100's, increase Levemir dose to 23units HS -Increase caloric ADA diet, double protein portions and Glucerna TID per patient request. -Continue Accu-checks with ISS -Monitor blood sugars and adjust medications accordingly UTI, acute, resolved Chronic tremor -Continue Propranolol DVT prophylaxisambulation Discussed Condition With: Patient and RN
--- NOTE | 2018-01-02 15:09 | P.PNPSY ---
Subjective Remarks: Pt seen and discussed with staff. Chart reviewed. He was admitted for psychosis and depression. He has been compliant with medication and denies side effects. He reports intermittent SI. He has been isolative to room, but calm without agitation. Mental Status Examination Appearance: Appropriate Consciousness: Alert Orientation: x4 Motor Activity: Normal gait Speech: Unremarkable Language: Adequate Fund of Knowledge: Adequate Attention and Concentration: Adequate Memory: Unremarkable Mood: Sad Affect: Sad Thought Process & Associations: Intact Thought Content: Appropriate Hallucination Type: None Delusion Type: None Suicidal Ideation: Yes Suicidal Plan: No Suicidal Intention: No Homicidal Ideation: No Homicidal Plan: No Homicidal Intention: No Insight: Fair Judgment: Impulsive Assessment and Plan - Assessment (1) Bipolar depression Code(s): F31.30 - Bipolar disorder, current episode depressed, mild or moderate severity, unspecified Status: Acute - Plan Plan: continue current tx plan Justification for Continued Inpatient Stay: impairments in safety
[2018-01-02] MEDS: Insulin Detemir Inj 1,000 UNIT/10 ML Vial SQ SCH (21:52)
[2018-01-03] MEDS: Propranolol 10 MG Tablet PO SCH ×2 (08:17→21:17)
[2018-01-03] MEDS: Senna/Docusate Sodium 8.6/50 MG Tablet PO SCH ×2 (08:18→21:17)
[2018-01-03] MEDS: Famotidine 20 MG Tablet PO SCH (08:18)
[2018-01-03] MEDS: Insulin NovoLOG Aspart Correctional Sugar Inj SQ SCH ×5 (08:58→21:20)
--- NOTE | 2018-01-03 10:25 | P.PNPSY ---
Subjective Remarks: Chart reviewed and discussed with nursing staff. Patient is in his room napping. He states that he is not receiving sufficient food, Dr. Miguel has ordered a Dietary Consult. Patient is requesting that his Lexapro be increased from 20 mg to 40mg, will defer that to Dr. Miguel as he just re-established the Lexapro. Patient is very withdrawn and secluded. He states that he is homeless and very worried as his discharge. He shared that his mother has terminal cancer and he is very sad. Denies any SI/HI. Review of Systems All other systems reviewed negative except as stated in HPI Mental Status Examination Appearance: Appropriate Consciousness: Alert Orientation: x4 Motor Activity: Normal gait Speech: Unremarkable Language: Adequate Fund of Knowledge: Adequate Attention and Concentration: Adequate Memory: Unremarkable Mood: Sad Affect: Sad Thought Process & Associations: Intact Thought Content: Appropriate Hallucination Type: None Delusion Type: None Suicidal Ideation: No Suicidal Plan: No Suicidal Intention: No Homicidal Ideation: No Homicidal Plan: No Homicidal Intention: No Insight: Fair Judgment: Impulsive Assessment and Plan - Assessment (1) Bipolar disorder, current episode depressed, mild or moderate severity, unspecified Code(s): F31.30 - Bipolar disorder, current episode depressed, mild or moderate severity, unspecified Status: Acute - Plan Plan: continue current tx plan Justification for Continued Inpatient Stay: Moving patient to a less restrictive environment may result in his decompensation.
--- NOTE | 2018-01-03 11:41 | P.PN ---
Subjective Interval history: Follow-up visit for DM. Patient continues to complain of not getting enough food with his meals despite changes to diet. Discussed with techs who state patient's portions have increased. BS have been stable and this morning was 138 , no hypoglycemia. He voices no other acute concerns or complaints at this moment. Physical Exam Vital signs: Vital Signs 01/03/18 05:48 Temperature 98 F Pulse Rate 70 Respiratory Rate 18 Blood Pressure 116/71 Pulse Oximetry 97 Narrative: GENERAL: Well-nourished, well-developed male in no acute distress. SKIN: Warm and dry. HEAD: Atraumatic. Normocephalic. CARDIOVASCULAR: Regular rate and rhythm. RESPIRATORY: No accessory muscle use. Clear to auscultation. Breath sounds equal bilaterally. MUSCULOSKELETAL: Extremities without clubbing, cyanosis, or edema. No obvious deformities. NEUROLOGICAL: Awake and alert. No obvious cranial nerve deficits. Motor grossly within normal limits. Normal speech. PSYCHIATRIC: Appropriate mood and affect; insight and judgment normal. Results - Labs CBC & Chem 7: 12/30/17 06:35 Laboratory Results - last 24 hr 01/02/18 01/02/18 01/02/18 16:02 16:19 21:58 POC Glucose 336 H 332 H 333 H 01/03/18 01/03/18 06:39 11:17 POC Glucose 138 H 241 H Assessment and Plan - Plan 52-year-old male with past medical history significant for diabetes mellitus, nephrolithiasis, depression, and alcohol abuse who presented to emergency department on 12/29 [place] bridge confused. Patient previously admitted on 12/27 due to similar symptoms. Restarted back on antibiotic for UTI, mental status improved. Patient with suicidal ideation, psychiatry consulted during observation unit stay, agreeable to voluntary admission to psychiatric unit. [facility] consulted now to assist with ongoing medical management. Suicidal ideation Depression AMS, resolved -Treatment plan per psychiatry, greatly appreciated. Diabetes mellitus, chronic -ADA diet, double protein portions and Glucerna TID per patient request. -Continue Accu-checks with ISS, Levemir 23 units HS -Monitor blood sugars and adjust medications accordingly UTI, acute, resolved Chronic tremor -Continue Propranolol DVT prophylaxisambulation Discussed Condition With: Patient and RN
[2018-01-03] MEDS: Insulin Detemir Inj 1,000 UNIT/10 ML Vial SQ SCH (21:18)
[2018-01-04] MEDS: Insulin NovoLOG Aspart Correctional Sugar Inj SQ SCH ×4 (07:20→20:44)
[2018-01-04] MEDS: Propranolol 10 MG Tablet PO SCH (08:31)
[2018-01-04] MEDS: Famotidine 20 MG Tablet PO SCH (08:31)
[2018-01-04] MEDS: Insulin Detemir Inj 1,000 UNIT/10 ML Vial SQ SCH (08:31)
[2018-01-04] MEDS: Senna/Docusate Sodium 8.6/50 MG Tablet PO SCH (08:34)
--- NOTE | 2018-01-04 09:37 | P.TTN ---
- Patient Problems Problems: 1. Discharge planning 2. Medication compliance 3. Knowledge deficit 4. Lack of coping skills - Progress Toward Goals Provider Present: Dr. Eyal Miguel (Dr. Miguel is titrating medications. Patient needs to remain for further stabilization.) Psychiatric Counselors Present: Drake Nino Jr., [facility] (Counselor Drake will assess the patient's motivation for change and discuss a safe discharge plan with him. Patient has a history of alcohol abuse and may be motivated to seek treatment at the [facility] or seek stable housing through recovery living, counselor will meet with the patient today to discuss a safe discharge plan.) Group Spec/RT/OT/DERAS Present: JAMAL Sherwood (Patient attends groups) - Documentation Teaching Recipient: Patient
--- NOTE | 2018-01-04 15:45 | P.PN ---
Subjective Interval history: Follow-up visit for DM. Nurse does not report any acute events, patient possibly will be DC on Thursday. Patient is seen and examined in the day room. He continues to complain of not getting enough food, he also states that he does not get a whole bottle of ensure. Bottles are not allowed in the unit per nurse. Denies any fevers, chills, N/V/D. Physical Exam Vital signs: Vital Signs 01/04/18 06:00 Temperature 98.2 F Pulse Rate 72 Respiratory Rate 17 Blood Pressure 125/69 Pulse Oximetry 100 Narrative: GENERAL: Well-nourished, well-developed male in no acute distress. SKIN: Warm and dry. HEAD: Atraumatic. Normocephalic. CARDIOVASCULAR: Regular rate and rhythm. RESPIRATORY: No accessory muscle use. Clear to auscultation. Breath sounds equal bilaterally. MUSCULOSKELETAL: Extremities without clubbing, cyanosis, or edema. No obvious deformities. NEUROLOGICAL: Awake and alert. No obvious cranial nerve deficits. Motor grossly within normal limits. Normal speech. PSYCHIATRIC: Appropriate mood and affect; insight and judgment normal. Results - Labs CBC & Chem 7: 12/30/17 06:35 Laboratory Results - last 24 hr 01/03/18 01/03/18 01/04/18 15:46 19:43 04:30 POC Glucose 292 H 286 H [place] 0.9 01/04/18 01/04/18 01/04/18 05:50 07:09 11:07 POC Glucose 206 H 233 H 366 H [place] Assessment and Plan - Plan 52-year-old male with past medical history significant for diabetes mellitus, nephrolithiasis, depression, and alcohol abuse who presented to emergency department on 12/29 [place] bridge confused. Patient previously admitted on 12/27 due to similar symptoms. Restarted back on antibiotic for UTI, mental status improved. Patient with suicidal ideation, psychiatry consulted during observation unit stay, agreeable to voluntary admission to psychiatric unit. [facility] consulted now to assist with ongoing medical management. Suicidal ideation Depression AMS, resolved -Treatment plan per psychiatry, greatly appreciated. Diabetes mellitus, chronic -ADA diet, double protein portions and Glucerna TID per patient request. No bottles allowed in unit per nursing. -Continue Accu-checks with ISS, Levemir 23 units HS, BS still high. Start Levemir 5units in the a.m. -Monitor blood sugars and adjust medications accordingly UTI, acute, resolved Chronic tremor -Continue Propranolol DVT prophylaxisambulation Discussed Condition With: Patient and RN
--- NOTE | 2018-01-04 17:16 | P.PNPSY ---
Subjective Remarks: Patient seen for follow-up, chart reviewed. Discussion with nursing staff reported that patient had argument with peers on the unit continues to be isolative but denying any suicide ideations. Patient was found lying hospital bed noted B, cooperative. Patient states that he is feeling anxious due to the environment but that he continues to feel somewhat depressed but denying any suicide ideations. Patient was advised that his lithium level 4 found to be within therapeutic limits which he was pleased about. Patient is future oriented and wanted to be engage in rehabilitation program which counselors were actively arranging. Patient denies any perceptional disturbances or delusions. Review of Systems All other systems reviewed negative except as stated in HPI Mental Status Examination Appearance: Appropriate Consciousness: Alert Orientation: x4 Motor Activity: Normal gait Speech: Unremarkable Language: Adequate Fund of Knowledge: Adequate Attention and Concentration: Adequate Memory: Unremarkable Mood: Sad (Lessening) Affect: Appropriate Thought Process & Associations: Intact Thought Content: Appropriate Hallucination Type: None Delusion Type: None Suicidal Ideation: No Suicidal Plan: No Suicidal Intention: No Homicidal Ideation: No Homicidal Plan: No Homicidal Intention: No Insight: Fair Judgment: Impulsive Assessment and Plan - Assessment (1) Bipolar depression Code(s): F31.30 - Bipolar disorder, current episode depressed, mild or moderate severity, unspecified Status: Acute - Plan Plan: Patient continues with some depressed mood but states that it is improving denying any suicide ideations at this time. [place] level was found to be within therapeutic limits. We will continue current treatment. We will continue to monitor mood and behavior. We will transfer patient back to 2600 unit as he is no longer having thoughts of self-harm. Treatment team was able to arrange patient to be discharged to [facility] scheduled for 01/06/18. Discharge planning in progress. Justification for Continued Inpatient Stay: At risk of further decompensation at lower level care.
[2018-01-05] MEDS: Insulin Detemir Inj 1,000 UNIT/10 ML Vial SQ SCH ×3 (05:39→21:50)
[2018-01-05] MEDS: Propranolol 10 MG Tablet PO SCH ×3 (05:39→21:50)
[2018-01-05] MEDS: Senna/Docusate Sodium 8.6/50 MG Tablet PO SCH ×3 (05:40→21:50)
[2018-01-05] MEDS: Insulin NovoLOG Aspart Correctional Sugar Inj SQ SCH ×4 (08:08→21:50)
[2018-01-05] MEDS: Famotidine 20 MG Tablet PO SCH (08:15)
[2018-01-05] MEDS ORDERED: Insulin Detemir Inj 1,000 UNIT/10 ML Vial SQ SCH (13:05)
--- NOTE | 2018-01-05 13:08 | P.PN ---
Subjective Interval history: Patient seen lying quietly in bed. He tells me that he is doing well but still feels like he is not getting enough to eat. He does tell me that he is allergic to Januvia and does not know why we have it on his formulary. Tells me that in the past he has struggled to control his diabetes but he remembers his most recent A1c is being somewhere around 6. Denies any chest pain or shortness of breath. No nausea vomiting or diarrhea. Physical Exam Vital signs: Vital Signs 01/05/18 05:51 Temperature 97.7 F Pulse Rate 64 Respiratory Rate 16 Blood Pressure 119/75 Pulse Oximetry 96 Intake & Output 01/04/18 01/05/18 01/05/18 18:59 06:59 18:59 Other: Date of Last Bowel Movement 12/30/17 Narrative: GENERAL: Well-nourished, well-developed adult male in no obvious distress. SKIN: Warm and dry. HEAD: Atraumatic. Normocephalic. CARDIOVASCULAR: Regular rate and rhythm. RESPIRATORY: No accessory muscle use. Clear to auscultation. Breath sounds equal bilaterally. GASTROINTESTINAL: Abdomen soft, non-tender, non-distended. Positive bowel sounds. MUSCULOSKELETAL: Extremities without clubbing, cyanosis, or edema. No obvious deformities. NEUROLOGICAL: Awake and alert. No obvious cranial nerve deficits. Motor grossly within normal limits. Normal speech. Results - Labs CBC & Chem 7: 12/30/17 06:35 Laboratory Results - last 24 hr 01/04/18 01/04/18 01/05/18 16:34 20:38 06:40 POC Glucose 325 H 293 H 209 H 01/05/18 01/05/18 07:20 10:57 POC Glucose 198 H 293 H Assessment and Plan - Plan 52-year-old male with past medical history significant for diabetes mellitus, nephrolithiasis, depression, and alcohol abuse who presented to emergency department on 12/29 [place]. Patient previously admitted on 12/27 due to similar symptoms. Restarted back on antibiotic for UTI, mental status improved. Patient with suicidal ideation, psychiatry consulted during observation unit stay, agreeable to voluntary admission to psychiatric unit. [facility] consulted now to assist with ongoing medical management. Suicidal ideation Depression AMS, resolved -Treatment plan per psychiatry, greatly appreciated. Diabetes mellitus, chronic -ADA diet, double protein portions and Glucerna TID per patient request. No bottles allowed in unit per nursing. -Continue Accu-checks with ISS, Levemir 23 units HS, BS still high. Increase a.m. Levemir to 8 units. -Stop Januvia as patient reports he is intolerant of it. -Monitor blood sugars and adjust medications accordingly UTI, acute, resolved Chronic tremor -Continue Propranolol DVT prophylaxisambulation Discussed Condition With: Patient and RN
--- NOTE | 2018-01-05 16:22 | P.PNPSY ---
Subjective Remarks: Patient seen for follow-up, chart reviewed. Discussion with nursing staff reported that patient compliant with treatment appropriate with staff and peers. Patient was found lying hospital bed noted B, cooperative. Patient states that he was having some difficulty with sleep last evening but his mood is "a little down but denying any suicidal ideations denying any perceptional services or delusions. Patient is future oriented and looking forward to discharge to a rehabilitation program in [place] which is arranged by treatment team for tomorrow morning. Discharge plan was reviewed with patient along with importance and continues to be hears to treatment which she agreed to. Review of Systems All other systems reviewed negative except as stated in HPI Mental Status Examination Appearance: Appropriate Consciousness: Alert Orientation: x4 Motor Activity: Normal gait Speech: Unremarkable Language: Adequate Fund of Knowledge: Adequate Attention and Concentration: Adequate Memory: Unremarkable Mood: Appropriate Affect: Appropriate Thought Process & Associations: Intact Thought Content: Appropriate Hallucination Type: None Delusion Type: None Suicidal Ideation: No Suicidal Plan: No Suicidal Intention: No Homicidal Ideation: No Homicidal Plan: No Homicidal Intention: No Insight: Fair Judgment: Impulsive Assessment and Plan - Assessment (1) Bipolar depression Code(s): F31.30 - Bipolar disorder, current episode depressed, mild or moderate severity, unspecified Status: Acute - Plan Plan: Patient this time with improvement in mood, denying any suicidal homicidal ideations, denies any perceptional disturbances. Patient scheduled for discharge tomorrow morning. We will continue current treatment. Continue to monitor mood and behavior. Patient will be transported to [facility] for continued treatment of his current substance abuse. Justification for Continued Inpatient Stay: At risk of further decompensation at lower level care.
[2018-01-06 05:49] VITALS: O2SAT 98
[2018-01-06 05:50] VITALS: BP 105/60; PULSE 72; RESP 16; TEMP 98.5
[2018-01-06] MEDS: Insulin NovoLOG Aspart Correctional Sugar Inj SQ SCH (07:22)
[2018-01-06] MEDS ORDERED: Propranolol 10 MG Tablet PO SCH (07:30)
[2018-01-06] MEDS ORDERED: Insulin Detemir Inj 1,000 UNIT/10 ML Vial SQ SCH (07:30)
[2018-01-06] MEDS ORDERED: Famotidine 20 MG Tablet PO SCH (07:30)
--- NOTE | 2018-01-06 21:59 | P.DSPSY ---
Psychiatry Discharge Summary Inpatient Psychiatric care?: Yes Advance Directives: No Mental Health Advance Directive: No Health Care Proxy: No - Admission Admission Date: December 29, 2017 16:16 - Admission Diagnosis (1) Bipolar depression Code(s): F31.30 - Bipolar disorder, current episode depressed, mild or moderate severity, unspecified Brief History: The patient is a 52-year-old man, domiciled in [place], single, unemployed, on SSI process, with a self-reported psychiatric history of bipolar disorder, anxiety, alcohol use disorder in sustained remission, he denies previous psychiatric hospitalizations, 2 previous suicide attempts by overdosing , he is in lithium 600 mg twice daily, Lexapro 20 mg, Xanax 2 mg 3 times daily, prescribed by outpatient provider in the [facility], with past medical history significant diabetes mellitus and alcohol abuse presents to the emergency department for evaluation of altered mental status. The patient was found sitting on a bridge confused and bystanders called EMS. He was admitted to [facility] on 12/27 for similar symptoms, was diagnosed with a UTI, discharged with antibiotics after his mentation returned to normal. Patient was admitted due to altered mental status/encephalopathy: Unclear etiology, suspect secondary to UTI versus misuse of medications. Toxicology screen negative, lithium level subtherapeutic 0.4, alcohol level less than 3, ammonia within normal limits. Head CT negative on 12/27/17. Consulted to psychiatry to address potential psychosis versus delirium. On psychiatric evaluation today I find a patient that is calm, cooperative, stating that he feels much better. However, he says that he has been increasingly depressed in the last months, to the point that yesterday he was thinking to commit suicide. He says that he has been contemplated to overdose because his life is going down the heel lately. He says that he just finished a rehabilitation program in the [facility], he was living in a sober house, but he left last week and he has been homeless. He says that he is to be a reach person, business, his house, a lot of friends " but due to my alcoholism and bipolar decompensation I lost everything". When I asked him about symptomatology of bipolar disorder he expresses that he has been very depressed in the past, he has tried to commit suicide, but he denies that he has been hospitalized. He says that the lesion has been very helpful, but in the last weeks he has not been compliant due to lack of resources. He says that he was also responsive to Lexapro 20 mg, but the same he has not taken this medication in the last 3 weeks. The patient reports that he has been putting a sleeping, with appetite, and weight loss. He also reports acute anxiety given the fact that he is not taking his Xanax. He reports hopelessness , helplessness, worthlessness, and persistent suicidal ideation. The patient is fully oriented x3, no attention deficit, no fluctuation of consciousness, he is logical, coherent, relevant and goal-directed. No loosening of associations , no delusions, no delirium, no agitation, no aggressive behavior, no ideas of reference, no paranoia could be elicited during this evaluation. PPHx: psychiatric history of bipolar disorder, anxiety, alcohol use disorder in sustained remission, he denies previous psychiatric hospitalizations, 2 previous suicide attempts by overdosing, he is in lithium 600 mg twice daily, Lexapro 20 mg, Xanax 2 mg 3 times daily, prescribed by outpatient provider in the [facility] PMHx: Diabetes, BPH, hypertension Substance Hx: Patient reports past use of alcohol, he has been sober for about 6 months Family Hx: Denies family psychiatric history Social Hx: Patient was born and raised in [place], he lives alone in [facility], poor family and social support, single, unemployed, on SSI process, his highest level of education is some college. Tobacco Use In Past 30 Days: No How Often Do You Have a Drink Containing Alcohol: Never Hospital Course: The patient is a 52-year-old man, domiciled in [place], single, unemployed, on SSI process, with a self-reported psychiatric history of bipolar disorder, anxiety, alcohol use disorder in sustained remission, he denies previous psychiatric hospitalizations, 2 previous suicide attempts by overdosing , he is in lithium 600 mg twice daily, Lexapro 20 mg, Xanax 2 mg 3 times daily, prescribed by outpatient provider in the [facility], with past medical history significant diabetes mellitus and alcohol abuse presents to the emergency department for evaluation of altered mental status. Patient was admitted to a locked, inpatient psychiatric unit. Appropriate precautions were in place throughout patient's hospital stay. Patient was seen and examined on the unit by psychiatry. Psychotropic medications were adjusted. There was no further evidence of any suicidality or homicidality on the inpatient unit. Patient's mood improved with the benefit of psychopharmacological treatment and had no behavioral disturbance since admission. Patient's lithium level were within therapeutic limits. Patient was noted to have reached stable mood, noted to participate and engage in treatment and interact with staff adequately. Patient noted to be future oriented with plans to continue treatment and outpatient follow-up appointments for continuity of care. Counselor has arranged discharge plan which patient will be transported to [facility] upon discharge. On the day of discharge: Patient seen and examined; chart reviewed. Case discussed with nurse and counselor. No behavioral issues overnight. On my examination today, the patient denies any suicidal homicidal ideation, intent or plan on direct questioning and contracts for safety. Patient denies any perceptional disturbances and no delusional material verbalized today. Patient denies any side effects from medication and has understanding of medication regimen and education. No physical complaints. Suicide and violence risk assessment on day of discharge both suggest lower imminent risk, and the patient's level of function is adequate for plan level of outpatient care. Patient has maximized benefit from this inpatient psychiatric hospital stay and will be discharged with discharge plan as arranged by counselor. Patient advised to return to psychiatric emergency room for any concerning psychiatric symptoms. Patient agrees with plan. - Discharge Discharge Date: 01/06/18 - Discharge Diagnosis (1) Bipolar depression Code(s): F31.30 - Bipolar disorder, current episode depressed, mild or moderate severity, unspecified Status: Acute Discharge Disposition: Inpatient Rehab Unit - Discharge Instructions Discharge Diet: Heart Healthy Diet Activities You Can Perform: Regular- No Restrictions - Discharge Time > 30 minutes Mental Status Examination Appearance: Appropriate Consciousness: Alert Orientation: x4 Motor Activity: Normal gait Speech: Unremarkable Language: Adequate Fund of Knowledge: Adequate Attention and Concentration: Adequate Memory: Unremarkable Mood: Appropriate Affect: Appropriate Thought Process & Associations: Intact Thought Content: Appropriate Hallucination Type: None Delusion Type: None Suicidal Ideation: No Suicidal Plan: No Suicidal Intention: No Homicidal Ideation: No Homicidal Plan: No Homicidal Intention: No Insight: Fair Judgment: Impulsive Discharge/Advance Care Plan - Results Vital Signs: Last Vital Signs Temp 98.5 F 01/06/18 05:49 Pulse 72 01/06/18 05:49 Resp 16 01/06/18 05:49 BP 105/60 01/06/18 05:49 Pulse Ox 98 01/06/18 05:49 Lab Results: Abnormal Lab Results 01/06/18 05:36 POC Glucose 159 H Laboratory Results Hemoglobin A1c 7.1 % (4.3-6.0) H 12/30/17 06:35 Triglycerides 177 mg/dL (42-150) H 12/30/17 06:35 Cholesterol 112 mg/dL (120-200) L 12/30/17 06:35 LDL Cholesterol, Calc 51 mg/dL (0-99) 12/30/17 06:35 HDL Cholesterol 26.0 mg/dL (40.0-60.0) L 12/30/17 06:35 Casar 0.9 meq/L (0.5-1.5) 01/04/18 04:30 Summary of Procedures: none Pending Results: None - Medications Number of antipsychotic medications at discharge: 0 - Discharge Care Plan Goals to Promote Your Health: * To prevent worsening of your condition and complications * To maintain your health at the optimal level Directions to Meet Your Goals: Take your medications as prescribed Follow your dietary instruction Follow activity as directed Keep your appointments as scheduled Take your immunizations and boosters as scheduled If your symptoms worsen call your PCP, if no PCP go to Urgent Care Center or Emergency Room For 06/10 questions related to your inpatient stay or results of tests pending at discharge, please contact Dr. Beltran Miguel MD at Smoking is Dangerous to Your Health. Avoid second hand smoking
== END 2018-01-06 08:09 ==
LOC: H260 16:16 → H270 12-31 16:06 → H260 01-04 15:25
PROVIDERS: ADMIT Student in an Organized Health Care Education/Training Program; ATTEND Student in an Organized Health Care Education/Training Program
CPT/HCPCS: 80048; 80061; 80178; 80307; 82948; 82962; 83036; J1815; Q0163